=== PATIENT | female | born 1965 | race Caucasian/White ===

== ENCOUNTER 2018-06-10 16:12 | Inpatient (IN) | payer MEDICARE, OTHER ==
[~2018-06-10] VITALS: Ht 167.6 cm; Wt 59.6 kg
[~2018-06-10 16:12] MED LIST: ALBU90OI INH; AMIT50 PO; ASPI325 PO; BENZ100A PO; CITA20 PO; CLON1 PO; CRUTCH2 USE; CYCL10 PO; DIAZ5 PO; DICY20 PO; DULO30 PO; DULO60; DULO60 PO; ETOD400 PO; GABA300 PO; GUAI600ER PO; HYDACE5 PO; HYDR25SUP PR; IBUP800 PO; INDO25 PO; KETO10 PO; LEVO750 PO; LISHYD1012 PO; LORTAB 7.5-3251 EACH PO; MELO7.5 PO; NAPR500 PO; OMEP20ER PO; OTC COLD MEDS; OXYACE5T PO; OXYACE7.5T PO; OXYC15ER PO; OXYC5 PO; PANT40 PO; PROM25 PO; Percocet 10-321 EACH PO; Prilosec Otc20 MG PO; SULTRISS PO; TRAM50 PO
[2018-06-10 17:56] LABS: BASOPHILS ABSOLUTE AUTO 0.07 K/mm3 (0.00-0.23); BASOPHILS PERCENT AUTO 0 % (0-2); EOSINOPHILS ABSOLUTE AUTO 0.03 K/mm3 (0.00-0.68); EOSINOPHILS PERCENT AUTO 0 % (0-6); Hematocrit 43.1 % (33.0-51.0); Hemoglobin 14.5 g/dL (11.5-16.0); IMMATURE GRAN ABSOLUTE AUTO 0.11 K/mm3 (0.00-0.10); IMMATURE GRAN PERCENT AUTO 1 % (0-1); LYMPHOCYTES ABSOLUTE AUTO 1.84 K/mm3 (0.84-5.20); LYMPHOCYTES PERCENT AUTO 10 % (21-46); MONOCYTES ABSOLUTE AUTO 0.71 K/mm3 (0.16-1.47); MONOCYTES PERCENT AUTO 4 % (4-13); Mean Corpuscular HGB 31.5 pg (26.0-34.0); Mean Corpuscular HGB Conc 33.6 g/dL (31.5-36.5); Mean Corpuscular Volume 94 fL (80-100); Mean Platelet Volume 8.2 fL (9.1-12.4); NEUTROPHILS ABSOLUTE AUTO 15.24 K/mm3 (1.96-9.15); NEUTROPHILS PERCENT AUTO 85 % (41-73); Platelet Count 462 K/mm3 (150-400); RDW Coefficient Variation 12.2 % (11.7-14.2); RDW Standard Deviation 42.5 fL (35.1-46.3)
[2018-06-10 18:14] LABS: Alanine Aminotransfer (ALT/SGP 42 U/L (12-78); Albumin, Blood 4.1 g/dL (3.4-5.0); Alk Phos 97 U/L (50-136); Anion Gap 8 mmol/L (6-16); Aspartate Aminotrans (AST/SGOT 25 U/L (12-37); Bilirubin, Total 0.3 mg/dL (0.1-1.0); Blood Urea Nitrogen 14 mg/dL (8-24); Bun/Creatinine Ratio 25.9 (12.0-20.0); CO2, Blood 25 mmol/L (21-32); Calcium, Blood 9.1 mg/dL (8.5-10.1); Chloride, Blood 101 mmol/L (98-108); Creatinine, Blood 0.54 mg/dL (0.40-1.00); Globulin, Blood 4.3 g/dL (2.2-4.0); Glomerular Filtration Rate >60 (60-); Glucose, Blood 107 mg/dL (70-99); Potassium, Blood 3.6 mmol/L (3.5-5.5); Sodium, Blood 134 mmol/L (136-145); Total Protein, Blood 8.4 g/dL (6.4-8.2)
[2018-06-11 05:39] LABS: Hematocrit 35.9 % (33.0-51.0); Hemoglobin 11.8 g/dL (11.5-16.0); Mean Corpuscular HGB 30.8 pg (26.0-34.0); Mean Corpuscular HGB Conc 32.9 g/dL (31.5-36.5); Mean Corpuscular Volume 94 fL (80-100); Mean Platelet Volume 8.3 fL (9.1-12.4); Platelet Count 400 K/mm3 (150-400); RDW Coefficient Variation 12.4 % (11.7-14.2); RDW Standard Deviation 42.5 fL (35.1-46.3); Red Blood Cell Count 3.83 M/mm3 (3.80-5.20); White Blood Cell Count 12.03 K/mm3 (4.00-11.30)
[2018-06-11 06:18] LABS: Alanine Aminotransfer (ALT/SGP 32 U/L (12-78); Albumin/Globulin Ratio 0.9 (0.8-1.8); Alk Phos 75 U/L (50-136); Anion Gap 7 mmol/L (6-16); Aspartate Aminotrans (AST/SGOT 23 U/L (12-37); Bilirubin, Total 0.4 mg/dL (0.1-1.0); Blood Urea Nitrogen 12 mg/dL (8-24); Bun/Creatinine Ratio 23.3 (12.0-20.0); CO2, Blood 27 mmol/L (21-32); Calcium, Blood 8.3 mg/dL (8.5-10.1); Chloride, Blood 107 mmol/L (98-108); Creatinine, Blood 0.52 mg/dL (0.40-1.00); Globulin, Blood 3.3 g/dL (2.2-4.0); Glomerular Filtration Rate >60 (60-); Glucose, Blood 96 mg/dL (70-99); Potassium, Blood 3.7 mmol/L (3.5-5.5); Sodium, Blood 141 mmol/L (136-145)
[2018-06-11] MEDS ORDERED: ASPI325 PO (07:44)
[2018-06-11 07:55] LABS: Total Protein, Blood 6.3 g/dL (6.4-8.2)
--- NOTE | 2018-06-11 07:59 | NUR ---
SHIFT SUMMARY PT A&O X 4 T/O SHIFT. ADMITTED FROM ER THIS SHIFT. INDEPENDENT IN ROOM PAIN IN L SHOULDER MANAGED PER EMAR. PT DECLINED ELEVATING LUE. NAUSEA MANGED PER EMAR. PT NPO POST MIDNIGHT. IV GTT PER EMAR. DR. PATEL NOTIFIED IN PERSON THIS AM PT REPORTS ASPIRIN USE FOR PAIN MANAGEMENT FOR LAST FEW MONTHS. PT OFF UNIT TO SMOKE X1. CALL LIGHT IN REACH; PT DEMONSTRATES USE. REPORT GIVEN TO DAY SHIFT RN.
[2018-06-11 08:13] LABS: BASOPHILS ABSOLUTE AUTO 0.07 K/mm3 (0.00-0.23); BASOPHILS PERCENT AUTO 1 % (0-2); EOSINOPHILS ABSOLUTE AUTO 0.18 K/mm3 (0.00-0.68); EOSINOPHILS PERCENT AUTO 2 % (0-6); IMMATURE GRAN ABSOLUTE AUTO 0.04 K/mm3 (0.00-0.10); IMMATURE GRAN PERCENT AUTO 0 % (0-1); LYMPHOCYTES ABSOLUTE AUTO 3.51 K/mm3 (0.84-5.20); LYMPHOCYTES PERCENT AUTO 29 % (21-46); MONOCYTES ABSOLUTE AUTO 0.86 K/mm3 (0.16-1.47); MONOCYTES PERCENT AUTO 7 % (4-13); NEUTROPHILS ABSOLUTE AUTO 7.33 K/mm3 (1.96-9.15); NEUTROPHILS PERCENT AUTO 61 % (41-73)
[2018-06-11 12:37] LABS: Automated BF RBC Count 2.703 M/mm3 (0-0); Automated BF WBC Count 4.219 K/mm3 (0-999); Body Fluid WBC Count 4219 /mm3 (0-999); RBC Count, Body Fluid 2703000 /mm3 (0-0)
[2018-06-11 12:42] LABS: Body Fluid Crystals NEG (NEGATIVE)
[2018-06-11 12:43] LABS: Appearance, Body Fluid Bloody (Clear); Color, Body Fluid Red (None-Yellow)
[2018-06-11 13:22] LABS: Total Cell Count, Body Fluid 20
--- NOTE | 2018-06-11 18:50 | NUR ---
SHIFT SUMMARY PT AXO, PLEASANT AND COOPERATIVE WITH CARE. AMBULATES WITH STEADY GAIT OUTSIDE TO SMOKE DEPSITE EDUCATION. MRI COMPLETED AND RADIOLOGY GUIDED ASPIRATION OF L SHOULDER JOINT COMPLETED. SEE LABS ASSOCIATED. NURSE CALLED LAB TO VERIFY THAT CULTURE HAD BEEN COMPLETE. DR PATEL VERIFIED OKAY TO START ANTIBIOTICS PER DR RUIZ. IV PATENT INFUSING AT THIS TIME. PT MEDICATED FOR PAIN AND NAUSEA PER EMAR. BED IN LOW POSITION, CALL LIGHT WITHIN REACH
[2018-06-12 05:35] LABS: BASOPHILS ABSOLUTE AUTO 0.06 K/mm3 (0.00-0.23); BASOPHILS PERCENT AUTO 1 % (0-2); EOSINOPHILS ABSOLUTE AUTO 0.31 K/mm3 (0.00-0.68); EOSINOPHILS PERCENT AUTO 3 % (0-6); Hematocrit 36.6 % (33.0-51.0); IMMATURE GRAN ABSOLUTE AUTO 0.03 K/mm3 (0.00-0.10); IMMATURE GRAN PERCENT AUTO 0 % (0-1); LYMPHOCYTES ABSOLUTE AUTO 1.97 K/mm3 (0.84-5.20); LYMPHOCYTES PERCENT AUTO 20 % (21-46); MONOCYTES ABSOLUTE AUTO 0.79 K/mm3 (0.16-1.47); MONOCYTES PERCENT AUTO 8 % (4-13); Mean Corpuscular HGB 30.8 pg (26.0-34.0); Mean Corpuscular HGB Conc 32.8 g/dL (31.5-36.5); Mean Corpuscular Volume 94 fL (80-100); Mean Platelet Volume 8.3 fL (9.1-12.4); NEUTROPHILS ABSOLUTE AUTO 6.88 K/mm3 (1.96-9.15); NEUTROPHILS PERCENT AUTO 69 % (41-73); Platelet Count 377 K/mm3 (150-400); RDW Coefficient Variation 12.3 % (11.7-14.2); RDW Standard Deviation 42.6 fL (35.1-46.3); Red Blood Cell Count 3.89 M/mm3 (3.80-5.20); White Blood Cell Count 10.04 K/mm3 (4.00-11.30)
[2018-06-12 05:59] LABS: Anion Gap 8 mmol/L (6-16); Blood Urea Nitrogen 15 mg/dL (8-24); Bun/Creatinine Ratio 26.7 (12.0-20.0); CO2, Blood 25 mmol/L (21-32); Calcium, Blood 8.6 mg/dL (8.5-10.1); Chloride, Blood 108 mmol/L (98-108); Creatinine, Blood 0.56 mg/dL (0.40-1.00); Glomerular Filtration Rate >60 (60-); Glucose, Blood 100 mg/dL (70-99); Potassium, Blood 3.5 mmol/L (3.5-5.5); Sodium, Blood 141 mmol/L (136-145)
--- NOTE | 2018-06-12 06:32 | NUR ---
SUMMARY: NO ACUTE CHANGE THIS SHIFT. PT A/O INDEPEDENT. VSS. NPO AT 0000. SPOKE THIS TANIA FROM PHARMACY AND HE RECOMMENDED 0000 DOSE OF ANTIBIOTIC GIVEN AT 0600 TO RETIME DUE TO 1400 DOSE NOT GIVEN UNTIL 2129, SEE EMAR. PT MEDICATED FOR PAIN PRN, 50MCG FENTANYAL AND TORADOL. NO ACUTE SAFETY CONCERNS. 18G IV STARTED. PLAN IS FOR I&D TODAY.
[2018-06-12] MEDS ORDERED: HYDR1TAB94 PO (14:31)
[2018-06-12] MEDS ORDERED: KETO10 PO (14:31)
--- NOTE | 2018-06-12 14:51 | NUR ---
DISCHARGE PT DISCHARGED HOME FROM UNIT AT APROX 1450. PT GIVEN WRITTEN AND VERBAL DISCHARGE INSTRUCTIONS AND VERBALIZED UNDERSTANDING OF THESE INSTRUCTIONS. IV'S REMOVED-PT TOLERATED WELL. REFUSED WHEELCHAIR TO CAR-INDEPENDENT IN AMBULATION
== END 2018-06-12 14:54 | disposition home or self-care (01) | DRG 565 ==
LOC: ER 16:12 → SURS 20:20
PROVIDERS: Internal Medicine; Orthopaedic Surgery; Physician Assistant; ADMIT Internal Medicine
PROC: 0R9K3ZX Drainage of Left Shoulder Joint, Percutaneous Approach, Diagnostic (ICD-10-PCS; principal; 2018-06-11)
DX: M89.512 Osteolysis, left shoulder (principal); M87.812 Other osteonecrosis, left shoulder; M25.412 Effusion, left shoulder; F17.210 Nicotine dependence, cigarettes, uncomplicated; Z86.19 Personal history of other infectious and parasitic diseases; Z88.5 Allergy status to narcotic agent; Z28.20 Immunization not carried out because of patient decision for unspecified reason
CPT/HCPCS: 20610; 36415; 73030; 73221; 77002; 80048; 80053; 85025; 85651; 86140; 87070; 87075; 87205; 89051; 89060; 96372; 96374; 96376; 99285-25; J1170; J1650; J1885; J2405; J2543; J3010; J3370; J7030

== ENCOUNTER 2019-04-26 01:50 | Observation (INO) | payer MEDICARE, OTHER ==
[~2019-04-26] VITALS: Ht 167.6 cm; Wt 61.8 kg
[~2019-04-26 01:50] MED LIST changes: +CHLO25 PO; +HYDR1TAB94 PO
[2019-04-26 02:13] LABS: BASOPHILS ABSOLUTE AUTO 0.09 K/mm3 (0.00-0.23); BASOPHILS PERCENT AUTO 1 % (0-2); EOSINOPHILS PERCENT AUTO 3 % (0-6); Hematocrit 39.1 % (33.0-51.0); Hemoglobin 12.7 g/dL (11.5-16.0); IMMATURE GRAN ABSOLUTE AUTO 0.03 K/mm3 (0.00-0.10); IMMATURE GRAN PERCENT AUTO 0 % (0-1); LYMPHOCYTES ABSOLUTE AUTO 3.15 K/mm3 (0.84-5.20); LYMPHOCYTES PERCENT AUTO 29 % (21-46); MONOCYTES ABSOLUTE AUTO 0.65 K/mm3 (0.16-1.47); MONOCYTES PERCENT AUTO 6 % (4-13); Mean Corpuscular HGB 32.2 pg (26.0-34.0); Mean Corpuscular HGB Conc 32.5 g/dL (31.5-36.5); Mean Corpuscular Volume 99 fL (80-100); Mean Platelet Volume 8.1 fL (9.1-12.4); NEUTROPHILS ABSOLUTE AUTO 6.49 K/mm3 (1.96-9.15); NEUTROPHILS PERCENT AUTO 61 % (41-73); Platelet Count 385 K/mm3 (150-400); RDW Coefficient Variation 12.3 % (11.7-14.2); RDW Standard Deviation 45.4 fL (35.1-46.3); Red Blood Cell Count 3.94 M/mm3 (3.80-5.20); White Blood Cell Count 10.71 K/mm3 (4.00-11.30)
[2019-04-26 02:30] LABS: Acetaminophen, Random <2.0 ug/mL (10.0-30.0); Alanine Aminotransfer (ALT/SGP 40 U/L (12-78); Albumin, Blood 3.4 g/dL (3.4-5.0); Albumin/Globulin Ratio 1.1 (0.8-1.8); Alk Phos 75 U/L (50-136); Anion Gap 5 mmol/L (6-16); Aspartate Aminotrans (AST/SGOT 20 U/L (12-37); Bilirubin, Total 0.2 mg/dL (0.1-1.0); Blood Urea Nitrogen 11 mg/dL (8-24); Bun/Creatinine Ratio 16.3 (12.0-20.0); CO2, Blood 27 mmol/L (21-32); Calcium, Blood 8.1 mg/dL (8.5-10.1); Chloride, Blood 111 mmol/L (98-108); Creatinine, Blood 0.68 mg/dL (0.40-1.00); Ethanol (Alcohol), Blood, Med <3 mg/dL; Globulin, Blood 3.1 g/dL (2.2-4.0); Glomerular Filtration Rate >60 (60-); Glucose, Blood 103 mg/dL (70-99); Potassium, Blood 3.9 mmol/L (3.5-5.5); Salicylate 4.6 mg/dL (2.8-20.0); Sodium, Blood 143 mmol/L (136-145); Total Protein, Blood 6.5 g/dL (6.4-8.2)
[2019-04-26] MEDS ORDERED: HYDRA25 PO (02:56)
[2019-04-26] MEDS ORDERED: PENVK500 PO (02:56)
[2019-04-26] MEDS ORDERED: CITA20 PO (02:56)
--- NOTE | 2019-04-26 04:40 | NUR ---
PATIENT ARRIVED TO THE FLOOR VIA GURNEY SNORING. SHE WAS GIVEN ATIVAN 2MG IN THE ER. SHE AWAKENED FOR A SHORT BIT FOR HER TO TRANSFER TO THE BED. THEN SHE FELL BACK TO SLEEP ONCE SHE GOT ON THE BED. ASSESSMENT COMPLETED AND HISTORY WAS MOSTLY OBTAINED THROUGH MEDICAL RECORDS. LAB EVEN CAME IN TO TAKE BLOOD AND SHE WOKE FOR A MINUTE RESPONDING TO HER NAME AND WHAT WE ARE TELLING HER BUT CONTINUES TO PASS OUT. CALL LIGHT WAS GIVEN. WILL CONTINUE TO MONITOR HER.
[2019-04-26 04:53] LABS: Anion Gap 4 mmol/L (6-16); Blood Urea Nitrogen 10 mg/dL (8-24); Bun/Creatinine Ratio 15.5 (12.0-20.0); CO2, Blood 25 mmol/L (21-32); Calcium, Blood 7.9 mg/dL (8.5-10.1); Chloride, Blood 113 mmol/L (98-108); Creatinine, Blood 0.65 mg/dL (0.40-1.00); Glomerular Filtration Rate >60 (60-); Glucose, Blood 100 mg/dL (70-99); Magnesium, Blood 1.8 mg/dL (1.6-2.4); Potassium, Blood 4.3 mmol/L (3.5-5.5); Sodium, Blood 142 mmol/L (136-145)
--- NOTE | 2019-04-26 05:19 | NUR ---
SHIFT SUMMARY: PATIENT ONLY GOT TO THE FLOOR ABOUT AN HOUR AGO. SHE HAS BEEN SLEEPING SINCE ARRIVAL. REFUSED TO HAVE LOVENOX AND FLU SHOT AT THIS TIME. WAS ABLE TO GET ASSESSMENT AND ADMISSION COMPLETED IN BETWEEN HER FALLING ASLEEP. CIWA WAS ONLY 1 ER GAVE ATIVAN BEFORE SENDING TO THE FLOOR. TELE WAS PLACED. SHE WAS SETTLED INTO THE ROOM. CALL LIGHT IN REACH AND BED ALARM WAS PLACED ON. WILL REPORT TO DAY SHIFT RN.
[2019-04-26 08:34] LABS: Source, Urine Clean Catch
[2019-04-26 09:21] LABS: Appearance, Urine Clear (Clear); Bilirubin, Urine Neg (Neg); Blood, Urine Neg (Neg); Color, Urine Yellow (P-Yellow); Glucose Qualitative, Urine Neg (Neg); Ketones, Urine Neg (Neg); Leukocyte Esterase, Urine Neg (Neg); Nitrite, Urine Neg (Neg); Protein, Urine Neg (Neg); Urobilinogen, Urine NORM (Normal)
[2019-04-26 09:32] LABS: U Amphetamine Screen Not Detected; U Barbituate Screen Not Detected; U Benzodiazapine Screen DETECTED; U Buprenorphine Screen Not Detected; U Cannabinoids Screen DETECTED; U Cocaine Screen Not Detected; U Methadone Screen Not Detected; U Methamphetamine Screen Not Detected; U Opiates Screen Not Detected; U Oxycodone Screen Not Detected; U Phencyclidine Screen Not Detected; U Propoxyphene Screen Not Detected
[2019-04-26] MEDS ORDERED: THERA1 EACH PO (12:32)
[2019-04-26] MEDS ORDERED: CHLO10 PO (12:33)
--- NOTE | 2019-04-26 14:04 | NUR ---
DISCHARGE SUMMARY: LATE ENTRY PATIENT REPORTED HIGH ANXIETY THIS MORNING. ALSO EXPERIENCING A HEADACHE AND MILD STOMACH UPSET. CIWA OF 11. MEDICATED PER PRNS WITH LIBRIUM. PATIENT TOLERATED WELL AND REPORTED THAT IT WAS SUCCESSFUL AT TREATING HER ANXIETY AND OTHER WITHDRAWL SYMPTOMS. LATE THIS MORNING, PATIENT REPORTED THAT SHE IS READY FOR DISCHARGE. DISCHARGE MEDICATIONS FAXED TO [facility] IN [place] PER REQUEST. SCRIPT FOR LIBRIUM PROVIDED TO THE PATIENT. DISCHARGE APPOINTMENT TO PCP SET. DISCHARGE EDUCATION AND INSTRUCTIONS PROVIDED TO THE PATIENT. ALL QUESTIONS AND CONCERNS ADDRESSED. PATIENT REFUSED WHEELCHAIR. PATIENT STEADY ON FEET AND DENIES DIZZINESS OR DIFFICULTY WALKING. PATIENT STABLE AT TIME OF DISCHARGE.
== END 2019-04-26 13:29 | disposition home or self-care (01) ==
LOC: ER 01:50 → MEDS 01:51 → ENPENDDIS 11:10 → MEDS 13:29
PROVIDERS: Emergency Medicine; ADMIT Hospitalist
DX: F10.239 Alcohol dependence with withdrawal, unspecified (principal); F15.10 Other stimulant abuse, uncomplicated; F32.9 Major depressive disorder, single episode, unspecified; F41.9 Anxiety disorder, unspecified; F17.210 Nicotine dependence, cigarettes, uncomplicated; M19.012 Primary osteoarthritis, left shoulder; I10 Essential (primary) hypertension; Z88.5 Allergy status to narcotic agent; Z79.82 Long term (current) use of aspirin; Z79.899 Other long term (current) drug therapy; Y90.0 Blood alcohol level of less than 20 mg/100 ml
CPT/HCPCS: 36415; 80048; 80053; 81003; 81025; 83735; 85025; 96361; 96372; 96374; 99285-25; G0378; G0480; J1650; J1885; J7030

== ENCOUNTER 2019-05-06 09:58 | Inpatient (IN) | payer MEDICARE, OTHER ==
[~2019-05-06] VITALS: Ht 167.6 cm; Wt 54.0 kg
[~2019-05-06 09:58] MED LIST changes: +CHLO10 PO; +HYDRA25 PO; +PENVK500 PO; +THERA1 EACH PO
[2019-05-06 10:20] LABS: BASOPHILS ABSOLUTE AUTO 0.05 K/mm3 (0.00-0.23); BASOPHILS PERCENT AUTO 1 % (0-2); EOSINOPHILS ABSOLUTE AUTO 0.09 K/mm3 (0.00-0.68); EOSINOPHILS PERCENT AUTO 1 % (0-6); Hematocrit 42.7 % (33.0-51.0); Hemoglobin 14.3 g/dL (11.5-16.0); IMMATURE GRAN ABSOLUTE AUTO 0.02 K/mm3 (0.00-0.10); IMMATURE GRAN PERCENT AUTO 0 % (0-1); LYMPHOCYTES ABSOLUTE AUTO 2.07 K/mm3 (0.84-5.20); LYMPHOCYTES PERCENT AUTO 22 % (21-46); MONOCYTES ABSOLUTE AUTO 0.43 K/mm3 (0.16-1.47); MONOCYTES PERCENT AUTO 5 % (4-13); Mean Corpuscular HGB 32.1 pg (26.0-34.0); Mean Corpuscular HGB Conc 33.5 g/dL (31.5-36.5); Mean Platelet Volume 8.1 fL (9.1-12.4); NEUTROPHILS ABSOLUTE AUTO 6.73 K/mm3 (1.96-9.15); NEUTROPHILS PERCENT AUTO 72 % (41-73); Platelet Count 444 K/mm3 (150-400); RDW Standard Deviation 42.7 fL (35.1-46.3); Red Blood Cell Count 4.46 M/mm3 (3.80-5.20); White Blood Cell Count 9.39 K/mm3 (4.00-11.30)
[2019-05-06 10:22] LABS: Mean Corpuscular Volume 96 fL (80-100)
[2019-05-06 10:44] LABS: Alanine Aminotransfer (ALT/SGP 52 U/L (12-78); Albumin, Blood 3.9 g/dL (3.4-5.0); Albumin/Globulin Ratio 1.1 (0.8-1.8); Alk Phos 70 U/L (50-136); Anion Gap 7 mmol/L (6-16); Aspartate Aminotrans (AST/SGOT 34 U/L (12-37); Bilirubin, Total 0.4 mg/dL (0.1-1.0); Blood Urea Nitrogen 12 mg/dL (8-24); Bun/Creatinine Ratio 21.7 (12.0-20.0); CO2, Blood 25 mmol/L (21-32); Calcium, Blood 8.9 mg/dL (8.5-10.1); Chloride, Blood 107 mmol/L (98-108); Creatinine, Blood 0.55 mg/dL (0.40-1.00); Ethanol (Alcohol), Blood, Med <3 mg/dL; Globulin, Blood 3.6 g/dL (2.2-4.0); Glomerular Filtration Rate >60 (60-); Glucose, Blood 124 mg/dL (70-99); Potassium, Blood 3.4 mmol/L (3.5-5.5); Salicylate 10.1 mg/dL (2.8-20.0); Sodium, Blood 139 mmol/L (136-145); Thyroxine (T4) 10.5 ug/dL (4.8-13.9); Total Protein, Blood 7.5 g/dL (6.4-8.2)
[2019-05-06 10:48] LABS: Source, Urine Clean Catch
[2019-05-06 10:56] LABS: Bilirubin, Urine Neg (Neg); Blood, Urine Neg (Neg); Glucose Qualitative, Urine Neg (Neg); Ketones, Urine Neg (Neg); Leukocyte Esterase, Urine Neg (Neg); Nitrite, Urine Neg (Neg); Protein, Urine Neg (Neg); Specific Gravity, Urine 1.005 (1.003-1.022); Urobilinogen, Urine NORM (Normal); pH, Urine 6.5 (5.0-8.0)
[2019-05-06 11:10] LABS: Appearance, Urine Clear (Clear); Color, Urine Yellow (P-Yellow)
[2019-05-06 11:18] LABS: U Amphetamine Screen Not Detected; U Barbituate Screen Not Detected; U Benzodiazapine Screen DETECTED; U Buprenorphine Screen Not Detected; U Cannabinoids Screen Not Detected; U Cocaine Screen Not Detected; U Methadone Screen Not Detected; U Methamphetamine Screen Not Detected; U Opiates Screen Not Detected; U Oxycodone Screen Not Detected; U Phencyclidine Screen Not Detected; U Propoxyphene Screen Not Detected
--- NOTE | 2019-05-06 14:30 | NUR ---
Patient arrived via gurney in [facility] from ER post report from Jossy BOYCE. She had restraints removed by ER Nurse and she was able to transfer self to bed via sliding herself. She has Banana Bag infusing at 200ml/hr. Assessment done . Patient states depressed but not currently suicidal. Sitter at door way. VSS. She is on RA and sats 98%. She has 18ga RFA, dressing intact and site WNL's. We have discussed that if she does not pull at lines and tubes she will remain out of restraints. Flu shot and lovenox given. Called Dr Escobar for 21mg Nicotine patch and applied.
--- NOTE | 2019-05-06 16:31 | NUR ---
Jorge called and went into room right away and patient was using pulse ox sensor and using it to cut her skin on LAC. Pictures taken and placed in charge. She rolled to left and used connector in sawing motion and broke skin and started to bleed. Cleaned site and place gauze over with coban. Talked with patient and very suicidal, states"does not want to be on earth". She wanted me to call her to come in and see her. She is being cooperative and less combative currently.
--- NOTE | 2019-05-06 17:24 | NUR ---
CALLED PATIENTS TO COME SEE PATIENT AND REALLY CHANGED HER MOOD. SHE AGREES THAT SHE CAN SWITCH VERY EASILY AND DOES STILL FEEL DEPRESSED AND SUICIDAL. VSS. SHE REMAINS IN TAT UPPER EXTREMITIES. SITTER AT DOOR FOR 1:1. SHE IS ASKING FOR DIET. WILL TALK WITH DR WRAY.
[2019-05-06 18:25] LABS: Alanine Aminotransfer (ALT/SGP 47 U/L (12-78); Albumin, Blood 3.2 g/dL (3.4-5.0); Alk Phos 58 U/L (50-136); Anion Gap 9 mmol/L (6-16); Aspartate Aminotrans (AST/SGOT 24 U/L (12-37); Bilirubin, Total 0.4 mg/dL (0.1-1.0); Blood Urea Nitrogen 8 mg/dL (8-24); Bun/Creatinine Ratio 14.8 (12.0-20.0); CO2, Blood 21 mmol/L (21-32); Calcium, Blood 8.2 mg/dL (8.5-10.1); Chloride, Blood 111 mmol/L (98-108); Creatinine, Blood 0.54 mg/dL (0.40-1.00); Globulin, Blood 3.2 g/dL (2.2-4.0); Glomerular Filtration Rate >60 (60-); Glucose, Blood 119 mg/dL (70-99); Magnesium, Blood 2.3 mg/dL (1.6-2.4); Potassium, Blood 3.7 mmol/L (3.5-5.5); Salicylate 5.9 mg/dL (2.8-20.0); Sodium, Blood 141 mmol/L (136-145); Total Protein, Blood 6.4 g/dL (6.4-8.2)
[2019-05-06 20:52] LABS: Acetaminophen, Random <2.0 ug/mL (10.0-30.0); Alanine Aminotransfer (ALT/SGP 47 U/L (12-78); Albumin, Blood 3.4 g/dL (3.4-5.0); Albumin/Globulin Ratio 1.1 (0.8-1.8); Alk Phos 62 U/L (50-136); Aspartate Aminotrans (AST/SGOT 25 U/L (12-37); Bilirubin, Direct 0.1 mg/dL (0.0-0.3); Bilirubin, Indirect 0.3 mg/dL (0.1-0.7); Bilirubin, Total 0.4 mg/dL (0.1-1.0); Total Protein, Blood 6.4 g/dL (6.4-8.2)
[2019-05-07 03:49] LABS: BASOPHILS ABSOLUTE AUTO 0.08 K/mm3 (0.00-0.23); BASOPHILS PERCENT AUTO 1 % (0-2); EOSINOPHILS ABSOLUTE AUTO 0.27 K/mm3 (0.00-0.68); EOSINOPHILS PERCENT AUTO 2 % (0-6); Hematocrit 40.4 % (33.0-51.0); Hemoglobin 13.5 g/dL (11.5-16.0); IMMATURE GRAN ABSOLUTE AUTO 0.06 K/mm3 (0.00-0.10); IMMATURE GRAN PERCENT AUTO 0 % (0-1); LYMPHOCYTES ABSOLUTE AUTO 1.44 K/mm3 (0.84-5.20); LYMPHOCYTES PERCENT AUTO 9 % (21-46); MONOCYTES ABSOLUTE AUTO 0.66 K/mm3 (0.16-1.47); MONOCYTES PERCENT AUTO 4 % (4-13); Mean Corpuscular HGB 32.1 pg (26.0-34.0); Mean Corpuscular HGB Conc 33.4 g/dL (31.5-36.5); Mean Corpuscular Volume 96 fL (80-100); Mean Platelet Volume 8.1 fL (9.1-12.4); NEUTROPHILS ABSOLUTE AUTO 13.16 K/mm3 (1.96-9.15); NEUTROPHILS PERCENT AUTO 84 % (41-73); Platelet Count 397 K/mm3 (150-400); RDW Coefficient Variation 12.2 % (11.7-14.2); RDW Standard Deviation 42.9 fL (35.1-46.3); White Blood Cell Count 15.67 K/mm3 (4.00-11.30)
[2019-05-07 04:09] LABS: Alanine Aminotransfer (ALT/SGP 46 U/L (12-78); Albumin, Blood 3.3 g/dL (3.4-5.0); Albumin/Globulin Ratio 1.1 (0.8-1.8); Alk Phos 59 U/L (50-136); Anion Gap 4 mmol/L (6-16); Aspartate Aminotrans (AST/SGOT 23 U/L (12-37); Bilirubin, Total 0.5 mg/dL (0.1-1.0); Blood Urea Nitrogen 12 mg/dL (8-24); Bun/Creatinine Ratio 20.7 (12.0-20.0); CO2, Blood 26 mmol/L (21-32); Calcium, Blood 8.4 mg/dL (8.5-10.1); Chloride, Blood 112 mmol/L (98-108); Creatinine, Blood 0.58 mg/dL (0.40-1.00); Glomerular Filtration Rate >60 (60-); Glucose, Blood 110 mg/dL (70-99); Potassium, Blood 3.8 mmol/L (3.5-5.5); Sodium, Blood 142 mmol/L (136-145); Total Protein, Blood 6.3 g/dL (6.4-8.2)
--- NOTE | 2019-05-07 07:22 | NUR ---
Receieved report from Zafar BOYCE. Patient awake in bed with HOB at 30 degrees. She is alert and oriented and able to communicate her needs. She still states plan and that if she had the chance would kill her self. When asked why she is in restraints she knows it is for her safety. She is in bilateral TAT upper extremities as she pulls out of soft restraints. She is on RA and sats upper 90%'s. She has 18ga IV in LFA dressing intact and site WNL's and is flushed and SL. She has sitter at bedside. VSS and WNL's.
--- NOTE | 2019-05-07 08:31 | NUR ---
Patient still withdrawn. Released restraints fo rbreakfast and she was constantin shoving stuff around as is she did not want it and then ate about 90% and 360ml of fluids. Placed back in restraints as she was escalating in agitation. She does asnwers lowly but appropriately questions. She took meds without difficulty. She continues to state plan and suicidal idealations, VSS Banana Bag started at 200ml/hr. Patient stated her shoulder is bothering her and would like xray.
--- NOTE | 2019-05-07 10:05 | NUR ---
Set up telepsych appt at 1245. Dr Licona by at 0911 and taklked with patient. VSS. She has been resting in bed and withdrawn when communicating. She still requesting Dr Licona to evaluate left shoulder. Still has suicidal ideal ations and states if released she would harm herself.
--- NOTE | 2019-05-07 12:00 | NUR ---
Patient has been [facility] and is stable with ambulation and just needs assist with line and tubes. VSS. She still looks around room like she is planning something. Everytime in room she reasks about left shoulder xray, stating " I better get it before I leav. She is asking for second patch of Nicotine or permission to go out side which I stated is not going to happen. Sitter at bedside helping patient with lunch. Tele-psych is done and awaiting report.
--- NOTE | 2019-05-07 12:40 | NUR ---
Patient arrived via gurney intubated and on sedation. He was 4 person transfer. He arrived wpyj 8.0 tube and 26cm at lips, vent settings AC 16, TV450 FiO2 30% with sats 100%.1240 Dr Rose changed to spon. mode PS ) Fio2 30% and PEEP 5.0 and sats remain upper 90%'s. Placed OG to LIS and temp 16Fr Benson with clear lighrt yellow urine and sent sample to lab. He was starting to become Hypotensive systolic 80 and MAP >60 with Propofol 50mcg, Versed 3mg and started Ajith-synepherine at 40mcg/min and systolic 90's. RT giving updrafts q2.
--- NOTE | 2019-05-07 15:00 | NUR ---
Titrating Propofol and Ajith for systolic greater than 90, with little success and not want to increase Ajith very high until CL placed. Called Dr Milton martinezved lg for PICC and he wants 2GM mag and continue updrats q2.
--- NOTE | 2019-05-07 15:20 | NUR ---
PT ARRIVED TO ROOM 352 FROM ICU 15 VIA W/C. PT IS AMBULATORY AND INDEPENDENT IN ROOM. PT IS HIGH SI RISK AND HAS A 1/1 SITTER. ORIENTED TO ROOM. WILL CONTINUE TO MONITOR.
--- NOTE | 2019-05-07 15:26 | NUR ---
Gave report to zhou BOYCE. Medicated patient prior to transfer. She was transfered in wheelchair with two RN's and a sitter. Her meds and any belonging went with patient. There were no personal belongings with patient when she arrived to ICU.
[2019-05-07 16:38] LABS: Source, Urine Clean Catch
[2019-05-07 16:41] LABS: Bilirubin, Urine Neg (Neg); Blood, Urine Neg (Neg); Glucose Qualitative, Urine Neg (Neg); Ketones, Urine Neg (Neg); Leukocyte Esterase, Urine 1+ (Neg); Nitrite, Urine Neg (Neg); Protein, Urine Neg (Neg); Specific Gravity, Urine 1.005 (1.003-1.022); Urobilinogen, Urine NORM (Normal); pH, Urine 6.5 (5.0-8.0)
[2019-05-07 16:43] LABS: Appearance, Urine Clear (Clear); Color, Urine Yellow (P-Yellow)
[2019-05-07 16:48] LABS: Bacteria Rare /hpf; Red Blood Cells, Urine Not Seen /hpf (0-2); Squamous Epithelial Cells Rare /hpf (Few); White Blood Cells, Urine 0-2 /hpf (0-5)
--- NOTE | 2019-05-07 18:41 | NUR ---
PT HAS BEEN CALM, FLAT AFFECT, AND COOPERATIVE SINCE ARRIVAL TO FLOOR. B/L WRIST RESTRAINTS DISCONTINUED. NO ACUTE CHANGES, WILL CONTINUE TO MONITOR AND REPORT TO ONCOMING RN
--- NOTE | 2019-05-07 22:47 | NUR ---
05/07/19 2240 PT SLEEPING WITHOUT DISTRESS. 1:1 SITTER AT BEDSIDE. VIDEO MONITORING IN EFFECT WELL.
[2019-05-08 04:52] LABS: BASOPHILS ABSOLUTE AUTO 0.04 K/mm3 (0.00-0.23); BASOPHILS PERCENT AUTO 1 % (0-2); EOSINOPHILS ABSOLUTE AUTO 0.23 K/mm3 (0.00-0.68); EOSINOPHILS PERCENT AUTO 3 % (0-6); Hematocrit 39.1 % (33.0-51.0); Hemoglobin 12.7 g/dL (11.5-16.0); IMMATURE GRAN ABSOLUTE AUTO 0.02 K/mm3 (0.00-0.10); IMMATURE GRAN PERCENT AUTO 0 % (0-1); LYMPHOCYTES ABSOLUTE AUTO 1.69 K/mm3 (0.84-5.20); LYMPHOCYTES PERCENT AUTO 23 % (21-46); MONOCYTES ABSOLUTE AUTO 0.48 K/mm3 (0.16-1.47); MONOCYTES PERCENT AUTO 7 % (4-13); Mean Corpuscular HGB 31.7 pg (26.0-34.0); Mean Corpuscular HGB Conc 32.5 g/dL (31.5-36.5); Mean Corpuscular Volume 98 fL (80-100); Mean Platelet Volume 8.4 fL (9.1-12.4); NEUTROPHILS PERCENT AUTO 67 % (41-73); Platelet Count 380 K/mm3 (150-400); RDW Standard Deviation 43.3 fL (35.1-46.3); Red Blood Cell Count 4.01 M/mm3 (3.80-5.20); White Blood Cell Count 7.36 K/mm3 (4.00-11.30)
--- NOTE | 2019-05-08 05:24 | NUR ---
05/08/19 0520 PT SNORING NOW. SHE HAS SLEPT MOST OF NIGHT WITH OCC. TRIPS TO BATHROOM FOR VOIDINGS. VITALS STABLE AND HAS A 1:1 SITTER AT BEDSIDE. VIDEO MONITORING IN EFFECT WELL. SUICIDAL PRECAUTIONS IN EFFECT. NO VERBALIZATION OF SELF HARM THIS SHIFT.
--- NOTE | 2019-05-08 07:26 | NUR ---
05/08/19 0616 SIGNIFICANT OTHER, SOLOMON, HERE AND WONDERING WHEN PT WOULD BE TRANSFERRED. SPOKE WITH PT AND OKAY'D TALKING WITH HIM. INFORMED PT AND SOLOMON THAT THERE ARE NO ORDERS FOR TRANSFER YET AND TO CALL BACK LATER THIS AM. HE AGREED. PT REQUEST SEDATIVE AND WAS GIVEN PER AUG.
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
--- NOTE | 2019-05-08 19:21 | NUR ---
SHIFT SUMMARY PT AXO X4, CRYING THROUGHOUT THE DAY. VSS. PT MEDICATED FOR PAIN AND ANXIETY AND WD PER EMAR. NURSE ASSESSED PT AND ASKED WITHDRAWL QUESTIONS, FRANCIS WAS A 15. DR LUJAN NOTIFED. THE MENTAL HEALTH AUTOMOBILE MECHANIC MOTOR THAT SAW THIS PATIENT STATES THAT SHE DOES NOT THINK THIS PT IS WITHDRAWLING AND THAT THOSE SYMPTOMS WERE R/T ANXIETY. SITTER PRESENT THROUGHOUT THE SHIFT ALSO WITH VIDEO MONITORING. PT STATES THAT SHE STILL WISHES TO HARM HERSELF. REPORT GIVEN TO [facility] [place] TO [facility] AT 1508 WHEN SHE CALLED FOR REPORT. [facility] TRANSFER AWAITING SECURE TRANSPORT IN AM. BED IN LOW POSITION, CALL LIGHT WITHIN REACH.
--- NOTE | 2019-05-09 04:36 | NUR ---
05/09/19 0435 RN SPOKE WITH NEVAEH VALENTIN, X RAY SERVICE TECHNICIAN AT [facility]. UPDATE GIVEN ON PATIENT. PT REMAINS ON HIGH RISK SUICIDAL PRECAUTIONS. 1:1 SITTER IN ROOM AND VIDEO MONITORING IN EFFECT. PT HAS BEEN WITHDRAWN/SLEEPING. SHE DOES GET UP WITH SUPERVISION TO BATHROOM FOR VOIDING AND REQUESTS MEDS PRN. SEE MAR.
--- NOTE | 2019-05-09 08:18 | NUR ---
PATIENT DISCHARGED VIA SECURE TRANSPORT TO [facility] IN [place].
== END 2019-05-09 08:16 | disposition short-term general hospital (02) | DRG 918 ==
LOC: ER 09:58 → MEDS 12:15 → ICUW 12:15 → MEDS 05-07 15:20
PROVIDERS: Emergency Medicine; Family Medicine; ADMIT Internal Medicine
DX: T43.222A Poisoning by selective serotonin reuptake inhibitors, intentional self-harm, initial encounter (principal); F33.9 Major depressive disorder, recurrent, unspecified; M00.9 Pyogenic arthritis, unspecified; T43.592A Poisoning by other antipsychotics and neuroleptics, intentional self-harm, initial encounter; Y92.9 Unspecified place or not applicable; I10 Essential (primary) hypertension; Z23 Encounter for immunization; F17.210 Nicotine dependence, cigarettes, uncomplicated; M13.0 Polyarthritis, unspecified; Z90.49 Acquired absence of other specified parts of digestive tract; F15.10 Other stimulant abuse, uncomplicated; B18.2 Chronic viral hepatitis C; M25.519 Pain in unspecified shoulder; D72.829 Elevated white blood cell count, unspecified; Z78.1 Physical restraint status
CPT/HCPCS: 36415; 71045; 73030; 80053; 80076; 81001; 81003; 81025; 83735; 84436; 84443; 85025; 87086; 90686; 93005; 93010; 96361; 96374; 99285-25; C9113; G0008; G0480; J1650; J2060; J3010; J3411; J3475; J7030; J7042

== ENCOUNTER 2019-05-14 18:22 | Emergency (ER) | payer MEDICARE, OTHER ==
[~2019-05-14] VITALS: Ht 167.6 cm; Wt 56.7 kg
[2019-05-14] MEDS ORDERED: MIRT15 PO (18:35)
[2019-05-14] MEDS ORDERED: Cymbalta60 MG PO (18:35)
[2019-05-14] MEDS ORDERED: PANT20 PO (18:35)
[2019-05-14] MEDS ORDERED: GABA300 PO (18:35)
== END 2019-05-14 19:07 | disposition home or self-care (01) ==
LOC: ER 18:22
DX: R00.0 Tachycardia, unspecified (principal); F15.10 Other stimulant abuse, uncomplicated; F32.9 Major depressive disorder, single episode, unspecified; F41.9 Anxiety disorder, unspecified; F17.210 Nicotine dependence, cigarettes, uncomplicated; Z79.899 Other long term (current) drug therapy
CPT/HCPCS: 36415; 93005; 93010; 99284-25

== ENCOUNTER 2019-05-18 21:43 | Inpatient (IN) | payer MEDICARE, OTHER ==
[~2019-05-18] VITALS: Ht 165.1 cm; Wt 59.1 kg
[~2019-05-18 21:43] MED LIST changes: +Cymbalta60 MG PO; +MIRT15 PO; +PANT20 PO
[2019-05-18 22:14] LABS: Source, Urine Catheter
[2019-05-18 22:15] LABS: BASOPHILS PERCENT AUTO 1 % (0-2); EOSINOPHILS ABSOLUTE AUTO 0.24 K/mm3 (0.00-0.68); EOSINOPHILS PERCENT AUTO 2 % (0-6); Hematocrit 37.6 % (33.0-51.0); Hemoglobin 12.2 g/dL (11.5-16.0); IMMATURE GRAN ABSOLUTE AUTO 0.07 K/mm3 (0.00-0.10); IMMATURE GRAN PERCENT AUTO 1 % (0-1); LYMPHOCYTES ABSOLUTE AUTO 4.26 K/mm3 (0.84-5.20); LYMPHOCYTES PERCENT AUTO 33 % (21-46); MONOCYTES ABSOLUTE AUTO 0.77 K/mm3 (0.16-1.47); MONOCYTES PERCENT AUTO 6 % (4-13); Mean Corpuscular HGB 31.9 pg (26.0-34.0); Mean Corpuscular HGB Conc 32.4 g/dL (31.5-36.5); Mean Corpuscular Volume 98 fL (80-100); Mean Platelet Volume 8.5 fL (9.1-12.4); NEUTROPHILS ABSOLUTE AUTO 7.54 K/mm3 (1.96-9.15); NEUTROPHILS PERCENT AUTO 58 % (41-73); Platelet Count 409 K/mm3 (150-400); RDW Coefficient Variation 11.9 % (11.7-14.2); RDW Standard Deviation 42.8 fL (35.1-46.3); Red Blood Cell Count 3.83 M/mm3 (3.80-5.20); White Blood Cell Count 12.98 K/mm3 (4.00-11.30)
[2019-05-18 22:18] LABS: Bilirubin, Urine Neg (Neg); Blood, Urine Neg (Neg); Glucose Qualitative, Urine Neg (Neg); Ketones, Urine Neg (Neg); Leukocyte Esterase, Urine Neg (Neg); Nitrite, Urine Neg (Neg); Protein, Urine 2+ (Neg); Urobilinogen, Urine NORM (Normal)
[2019-05-18 22:23] LABS: Appearance, Urine Clear (Clear); Color, Urine Yellow (P-Yellow)
[2019-05-18 22:24] LABS: White Blood Cells, Urine 0-2 /hpf (0-5)
[2019-05-18 22:25] LABS: Amorphous Light (0-Heavy); Bacteria Mod /hpf; Red Blood Cells, Urine Not Seen /hpf (0-2); Squamous Epithelial Cells Rare /hpf (Few)
[2019-05-18 22:34] LABS: U Amphetamine Screen Not Detected; U Barbituate Screen Not Detected; U Benzodiazapine Screen DETECTED; U Buprenorphine Screen Not Detected; U Cannabinoids Screen Not Detected; U Cocaine Screen Not Detected; U Methadone Screen Not Detected; U Methamphetamine Screen Not Detected; U Opiates Screen Not Detected; U Oxycodone Screen Not Detected; U Phencyclidine Screen Not Detected; U Propoxyphene Screen Not Detected
[2019-05-18 22:35] LABS: Acetaminophen, Random 2.5 ug/mL (10.0-30.0); Alanine Aminotransfer (ALT/SGP 41 U/L (12-78); Albumin, Blood 3.6 g/dL (3.4-5.0); Albumin/Globulin Ratio 1.2 (0.8-1.8); Alk Phos 67 U/L (50-136); Anion Gap 7 mmol/L (6-16); Aspartate Aminotrans (AST/SGOT 21 U/L (12-37); Bilirubin, Total 0.4 mg/dL (0.1-1.0); Blood Urea Nitrogen 18 mg/dL (8-24); Bun/Creatinine Ratio 24.5 (12.0-20.0); CO2, Blood 24 mmol/L (21-32); Calcium, Blood 8.6 mg/dL (8.5-10.1); Chloride, Blood 110 mmol/L (98-108); Creatinine, Blood 0.73 mg/dL (0.40-1.00); Glomerular Filtration Rate >60 (60-); Glucose, Blood 114 mg/dL (70-99); Potassium, Blood 3.1 mmol/L (3.5-5.5); Salicylate 5.5 mg/dL (2.8-20.0); Sodium, Blood 141 mmol/L (136-145); Total Protein, Blood 6.6 g/dL (6.4-8.2)
--- NOTE | 2019-05-19 | NUR ---
ASSUMPTION OF CARE: PT ARRIVED TO ICU FROM ED. DX OF MEDICATION OD. PT ABLE TO WAKE TO NAME BUT OTHERWISE VERY DROWSY. PER REPORT PT POTENTIALLY OD'D ON GABAPENTIN, REMERON, VISTARIL, AND/OR SEROQUEL. PT IS AFEBRILE. IN NSR WITH SOMEWHAT PROLONGED QT. SBP IN HIGH 80S TO LOW 90S HR IN THE 60S. LUNG SOUNDS CLEAR THROUGHOUT. SP02 >90% ON 2L NC. BT X 4. BM IN THE ED. TEMP BUCKLEY IN PLACE DRAINING CLEAR YELLOW URINE. 18G IN LFA 18G IN RFA-INFUSING. K+ ON ADMIT 3.1. PT IS CURRENTLY ON 1:1 WITH SITTER. RESTING COMFORTABLY. WILL CONT TO MONITOR.
--- NOTE | 2019-05-19 02:59 | NUR ---
SPOKE WITH POISON CONTROL. RECOMMENDED TO CONTINUE TO MONITOR SYMPTOMS, CARDIAC RHYTHM, AND QTC. RECOMMENDED TO REDRAW TYLENOL AND SALICYLATE TO SEE IF TRENDING UP.
[2019-05-19 03:38] LABS: Hematocrit 33.8 % (33.0-51.0); Hemoglobin 11.1 g/dL (11.5-16.0); Mean Corpuscular HGB 32.4 pg (26.0-34.0); Mean Corpuscular HGB Conc 32.8 g/dL (31.5-36.5); Mean Corpuscular Volume 99 fL (80-100); Mean Platelet Volume 8.5 fL (9.1-12.4); Platelet Count 354 K/mm3 (150-400); RDW Coefficient Variation 12.1 % (11.7-14.2); RDW Standard Deviation 43.7 fL (35.1-46.3); Red Blood Cell Count 3.43 M/mm3 (3.80-5.20); White Blood Cell Count 20.93 K/mm3 (4.00-11.30)
[2019-05-19 03:50] LABS: Acetaminophen, Random 4.5 ug/mL (10.0-30.0); Alanine Aminotransfer (ALT/SGP 34 U/L (12-78); Albumin/Globulin Ratio 1.1 (0.8-1.8); Alk Phos 54 U/L (50-136); Anion Gap 5 mmol/L (6-16); Aspartate Aminotrans (AST/SGOT 20 U/L (12-37); Bilirubin, Total 0.3 mg/dL (0.1-1.0); Blood Urea Nitrogen 17 mg/dL (8-24); Bun/Creatinine Ratio 27.5 (12.0-20.0); CO2, Blood 24 mmol/L (21-32); Calcium, Blood 7.8 mg/dL (8.5-10.1); Chloride, Blood 113 mmol/L (98-108); Creatinine, Blood 0.62 mg/dL (0.40-1.00); Globulin, Blood 2.7 g/dL (2.2-4.0); Glomerular Filtration Rate >60 (60-); Glucose, Blood 117 mg/dL (70-99); Potassium, Blood 4.4 mmol/L (3.5-5.5); Salicylate 2.9 mg/dL (2.8-20.0); Sodium, Blood 142 mmol/L (136-145); Total Protein, Blood 5.7 g/dL (6.4-8.2)
--- NOTE | 2019-05-19 04:57 | NUR ---
DR GASTELUM NOTIFIED OF PTS INCREASING WHITE COUNT AND SOFT BP. ORDERED NS BOLUS 500MLS NOW AND X 1 PRN IF NECESSARY. NO FURTHER ORDERS GIVEN
--- NOTE | 2019-05-19 05:18 | NUR ---
SHIFT SUMMARY: PT REMAINS DROWSY AND SEDATED. AFEBRILE. LUNG SOUNDS CLEAR. SPO2 >90% ON 2L NC. IN NSR, SBP IN HIGH 80-LOW 90S. 500ML BOLUS CURRENTLY INFUSING. HR IN THE 60S. BT PRESENT IN ALL 4. PT HAD BM IN ED. TEMP BUCKLEY IN PLACE DRAINING CLEAR YELLOW URINE. 18G IN LFA AND RFA. RFA INFUSING WITH NS.
--- NOTE | 2019-05-19 06:01 | NUR ---
1:1 SITTER REPORTS PT HAVING JERKING MOVEMENTS IN BED LASTING APPROX 1 MIN. PT APPEARS POST-ICTAL, UNABLE TO FOLLOW COMMANDS, DECREASED RESPONSIVENESS. CALL PLACED TO DR. GASTELUM AND ISSAC LEFT
--- NOTE | 2019-05-19 06:10 | NUR ---
POISON CONTROL POISON CONTROL NOTIFIED OF POSSIBLE SEIZURE ACTIVITY NOTED BY SITTER AT BEDSIDE. RECOMMENDATION IS TO USE BENZODIAZEPINES NEEDED FOR SEIZURE ACTIVITY AND TO POSSIBLY CHECK CK LEVEL. WILL DISCUSS WITH MD WHEN AVAILABLE.
--- NOTE | 2019-05-19 06:10 | NUR ---
CALL RECEIVED FROM DR GASTELUM. NO ORDERS AT THIS TIME. ADVISED TO MONITOR PATIENT.
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
--- NOTE | 2019-05-19 12:02 | NUR ---
Attempted to meet with patient for a Safety Plan in case patient did not tranfer again to acute inpatient psych. She was not willing to talk. She gave verbal consent to update her mother and stepfather regardng her care. AUSTEN Vitale and I witness. Jacqueline Garcia is mother, phone numbers left for Neuropsychology Division Chief for the 2 MD Hold review to contact. Educated thhe parents on length of holds and addiction behaviors. Parents expressed they would like to discuss further involuntary if possible. They report patient left [facility] after 3 days of treatment, came home and did use meth again. Report patient's boyfriend, Jatin, is very supportive of her. Mother says patient got worse after her father's 4 years ago. Mother alluded that the two drank heavily together. Patient on involuntary hold. Admitted 05/06/19 for OD suicide attempt, cut self while in ICU after tearing apart pulse ox on her finger, DC 05/09 to [facility]. Patient admitted again last night for OD. Dr. Estrada updated with parents' concerns and of alert given to [facility] Neuropsychology Division Chief. Roxie Atwood M.Ed., [facility]
--- NOTE | 2019-05-19 16:08 | NUR ---
INITIAL ASSESMENT PT ALSEEP BUT AROUSABLE AND BECOMES VERY AGGITATED WHEN WOKE. 1:1 SITTER AT BEDSIDE PER SUICIDE PRECAUTIONS. ROOM CLEARED AND SECURE OF HARMFUL ITEMS AND CLOSE OBSERVATION IN PLACE. VSS, AFEBRILE NSR AND NO EDEMA 2LO NC AND WILL WEAN TOLERATED. UO ADEQUATE CLEAR AND YELLOW PER BUCKLEY. ABD SOFT ROUND AND NON TENDER. PT REFUSING MOST CARE. SKIN INTACT WILL CONT 1:1 OBS AND MONITOR
--- NOTE | 2019-05-19 20:00 | NUR ---
ASSUMPTION OF CARE ASSUMED CARE OF PT AT 1900. PT RESTING IN BED, AROUSES TO VERBAL STIMULI, ORIENTED TO SELF AND PLACE, FOLLOWING DIRECTIONS. LS CLEAR, O2 SATURATIONS ABOVE 90% ON RA. MONITOR SHOWS NORMAL SINUS RHYTHM WITH RATE IN THE 60'S. BUCKLEY IN PLACE, DRAINING CLEAR YELLOW URINE. PT REPORTS MILD PAIN TO L HIP, BETTER WITH REPOSITIONING, REPOSITIONS SELF IN BED.
--- NOTE | 2019-05-19 21:00 | NUR ---
DISCUSSED PTS SUICIDE REASSESSMENT WITH CHARGE NURSE ARLINE Wright AND NURSING SALVAGE ENGINEER JOE Mckeon. DECISION MADE TO MAINTAIN PT ON "HIGH SUICIDE RISK" AND 1:1 MONITORING DUE TO PTS HX OF SELF HARM AND INABILITY OF ACCURATE PSYCH CONSULT DUE TO PTS RESPONSIVENESS (SEE DR NICHOLE'S NOTE)
[2019-05-19 21:44] LABS: U Amphetamine Screen Not Detected; U Barbituate Screen Not Detected; U Benzodiazapine Screen DETECTED; U Buprenorphine Screen Not Detected; U Cannabinoids Screen Not Detected; U Cocaine Screen Not Detected; U Methadone Screen Not Detected; U Methamphetamine Screen Not Detected; U Opiates Screen Not Detected; U Oxycodone Screen Not Detected; U Phencyclidine Screen Not Detected; U Propoxyphene Screen Not Detected
[2019-05-20 03:37] LABS: BASOPHILS ABSOLUTE AUTO 0.07 K/mm3 (0.00-0.23); BASOPHILS PERCENT AUTO 0 % (0-2); EOSINOPHILS ABSOLUTE AUTO 0.25 K/mm3 (0.00-0.68); EOSINOPHILS PERCENT AUTO 2 % (0-6); Hematocrit 35.2 % (33.0-51.0); Hemoglobin 11.3 g/dL (11.5-16.0); IMMATURE GRAN ABSOLUTE AUTO 0.09 K/mm3 (0.00-0.10); IMMATURE GRAN PERCENT AUTO 1 % (0-1); LYMPHOCYTES ABSOLUTE AUTO 2.55 K/mm3 (0.84-5.20); LYMPHOCYTES PERCENT AUTO 15 % (21-46); MONOCYTES ABSOLUTE AUTO 0.89 K/mm3 (0.16-1.47); MONOCYTES PERCENT AUTO 5 % (4-13); Mean Corpuscular HGB 31.6 pg (26.0-34.0); Mean Corpuscular HGB Conc 32.1 g/dL (31.5-36.5); Mean Corpuscular Volume 98 fL (80-100); Mean Platelet Volume 8.4 fL (9.1-12.4); NEUTROPHILS ABSOLUTE AUTO 12.92 K/mm3 (1.96-9.15); NEUTROPHILS PERCENT AUTO 77 % (41-73); Platelet Count 362 K/mm3 (150-400); RDW Coefficient Variation 12.2 % (11.7-14.2); RDW Standard Deviation 44.5 fL (35.1-46.3); Red Blood Cell Count 3.58 M/mm3 (3.80-5.20); White Blood Cell Count 16.77 K/mm3 (4.00-11.30)
[2019-05-20 04:14] LABS: Albumin, Blood 2.9 g/dL (3.4-5.0); Anion Gap 5 mmol/L (6-16); Blood Urea Nitrogen 14 mg/dL (8-24); Bun/Creatinine Ratio 18.1 (12.0-20.0); CO2, Blood 24 mmol/L (21-32); Chloride, Blood 117 mmol/L (98-108); Creatinine, Blood 0.77 mg/dL (0.40-1.00); Glomerular Filtration Rate >60 (60-); Glucose, Blood 75 mg/dL (70-99); Phosphorus, Blood 3.2 mg/dL (2.5-4.9); Sodium, Blood 146 mmol/L (136-145)
--- NOTE | 2019-05-20 05:47 | NUR ---
SHIFT SUMMARY PT RESTED T/O SHIFT, AROUSES EASILY WITH NURSING CARE AND VERBAL STIMULI. SOME AGITATION AND CONFUSION, PT EASILY REORIENTED/REDIRECTED, PULLED OUT IV EARLY IN SHIFT. PT MAINTAINS O2 ABOVE 90% ON RA, LS CLEAR T/O. MONITOR SHOWS NSR, RATE 60'S, RHYTHM STRIP SHOWS SLIGHT INCREASE IN QT PROLONGATION, SEE PTS CHART. BP REMAINS STABLE T/O SHIFT. TMAX 99.5. BUCKLEY REMAINS IN PLACE, DRAINING CLEAR, DARK YELLOW URINE.
--- NOTE | 2019-05-20 08:00 | NUR ---
INITIAL ASSESMENT PT ALSEEP BUT AROUSABLE AND BECOMES VERY AGGITATED WHEN WOKE. 1:1 SITTER AT BEDSIDE PER SUICIDE PRECAUTIONS. ROOM CLEARED AND SECURE OF HARMFUL ITEMS AND CLOSE OBSERVATION IN PLACE. VSS, AFEBRILE NSR AND NO EDEMA RA CLEAR AND DIM BILATERALLY AND NO S/S OF RESP DISTRESS OR SOB AT THIS TIME. UO ADEQUATE CLEAR AND YELLOW PER STANDBY ASSIST TO TOILET. ABD SOFT ROUND AND NON TENDER. WITH GOOD APPETITE AND NO C/O N/V WITH NO BM AT THIS TIME PT REFUSING MOST CARE. SKIN INTACT WILL CONT 1:1 OBS AND MONITOR
--- NOTE | 2019-05-20 12:00 | NUR ---
PT UPDATE PT DOWN GREADED TO MS AYALA AND MD AT BEDSIDE. PT AGITATED AT TIMES AND HARD TO REDIRECT. PT WANTS TO GO OUTSIDE AND SMOKE WITH NICOTENE PATCH APPLIED TO LEFT DELTOID PER MD ORDER. PT VERY QUICK TO GET OOB AND CLOSE MONITORING REQUIRED. WILL CONT TO MONITOR
--- NOTE | 2019-05-20 12:25 | NUR ---
[facility]: Zora is a 53 year old lady with a history of SVT,OA, hepatitis C, depression, ETOH and meth use. She has a history of suicidal ideation. She was recently discharged from [facility] to [facility], an inpatient treatment facility. However, she was only there 2 days and went home. She was admitted back to [facility] on 05/19/19 for an overdose. She is currently on a 2 MD hold. She is awake and willing to visit with this policy writer sales. She reports that she is hungry and that she didn't eat her breakfast because she was too sleepy this morning. Offered to get her a snack, however she declined and stated she would wait until lunch is served. She has a flat affect and at times maintains some eye contact. She reports that she is unhappy with the poor choices she has made and is angry with herself. She reports she has been in a relationship with her S.O for more than 20 years and she is afraid that "He will hate me because I told him I wouldn't do this anymore and I did." She is tearful at times during our conversation. She reports that her father several years ago and that she has struggled with that loss. She reports that she believes her mother is still alive. She has no children. She states she has struggled with anxiety her whole life. She also reports that she keeps all of her feelings bottled up inside. She states that she has chronic shoulder pain and that the pain gets so bad sometimes that she doesn't see a reason to live. She reports that she has tried lidocaine patches and creams, heat and ice and physical therapy all of which have not helped. She states that smoking marijuana does help the pain in her shoulder sometimes. She reports that her shoulder pain has caused her to be disabled. 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 She misses working as a cook and states that she feels poorly that her S.O. works so hard and she hasn't been able to. She states she turned to ETOH and drugs to help her escape her physical pain. It appears that she likely has a lot of emotional pain as well. She feels she has "hit the bottom" and is willing to seek treatment "If it will help." She has feelings of hopelessness. Encouraged her to find reasons in her life that make her life worth living. She states that she has pets who she enjoys but has no one else. When asked about her S.O. she states that she is afraid she has screwed that up and states she would not blame him if he chose to not have a relationship with her anymore. She is requesting to go outside to smoke. Explained hospital policy and that she has a nicotine patch on. She reports she smokes up to 2 packs per day. Allowed her to talk about her life and feelings of hopelessness. Encouraged her seek assistance and to forgive herself. She states "I can't go back and undo things." Encouraged her to focus on her future even if it's one hour at a time. Zora may benefit from non pharmacologic and some non narcotic pain management. She reports she has never seen a pain specialist for her shoulder pain. Offer use of heat, cooling and repositioning. Could consider a lidoderm patch and possibly some aroma therapy to assist with pain relief. She will likely also benefit from mental health counseling. Most of this visit was therapeutic in nature. Waiting for Dr. Oliveros to do his evaluation. Plan of care TBD. PC will continue to follow for symptom management.
--- NOTE | 2019-05-20 21:00 | NUR ---
ASSUMPTION OF CARE ASSUMED CARE OF PT AT 1900, PT A&O x4, DENIED SI. LS CLEAR T/O, PT ON RA. MONITOR SHOWS NSR. PT COMPLAINS OF SOME DISCORMFORT TO RED AREA, URGENCY TO URINATE AND SOMETIMES INABILITY TO URINATE. INFORMED PT THAT DISCOMFORT MAY BE DUE TO RECENT BUCKLEY REMOVAL. PT PLEASANT AND COOPERATIVE AT THIS TIME. TOLERATING PO INTAKE WELL.
[2019-05-21 03:26] LABS: BASOPHILS ABSOLUTE AUTO 0.08 K/mm3 (0.00-0.23); BASOPHILS PERCENT AUTO 1 % (0-2); EOSINOPHILS ABSOLUTE AUTO 0.33 K/mm3 (0.00-0.68); EOSINOPHILS PERCENT AUTO 2 % (0-6); Hematocrit 35.1 % (33.0-51.0); Hemoglobin 11.7 g/dL (11.5-16.0); IMMATURE GRAN ABSOLUTE AUTO 0.04 K/mm3 (0.00-0.10); IMMATURE GRAN PERCENT AUTO 0 % (0-1); LYMPHOCYTES ABSOLUTE AUTO 2.64 K/mm3 (0.84-5.20); LYMPHOCYTES PERCENT AUTO 17 % (21-46); MONOCYTES ABSOLUTE AUTO 0.82 K/mm3 (0.16-1.47); MONOCYTES PERCENT AUTO 5 % (4-13); Mean Corpuscular HGB 31.8 pg (26.0-34.0); Mean Corpuscular HGB Conc 33.3 g/dL (31.5-36.5); Mean Platelet Volume 8.2 fL (9.1-12.4); NEUTROPHILS ABSOLUTE AUTO 11.39 K/mm3 (1.96-9.15); NEUTROPHILS PERCENT AUTO 74 % (41-73); Platelet Count 359 K/mm3 (150-400); RDW Coefficient Variation 11.8 % (11.7-14.2); RDW Standard Deviation 41.4 fL (35.1-46.3); Red Blood Cell Count 3.68 M/mm3 (3.80-5.20)
[2019-05-21 03:28] LABS: Mean Corpuscular Volume 95 fL (80-100)
[2019-05-21 03:48] LABS: Albumin, Blood 3.1 g/dL (3.4-5.0); Anion Gap 5 mmol/L (6-16); Blood Urea Nitrogen 14 mg/dL (8-24); Bun/Creatinine Ratio 21.7 (12.0-20.0); CO2, Blood 28 mmol/L (21-32); Calcium, Blood 8.5 mg/dL (8.5-10.1); Chloride, Blood 107 mmol/L (98-108); Creatinine, Blood 0.65 mg/dL (0.40-1.00); Glomerular Filtration Rate >60 (60-); Glucose, Blood 94 mg/dL (70-99); Phosphorus, Blood 4.3 mg/dL (2.5-4.9); Potassium, Blood 4.1 mmol/L (3.5-5.5); Sodium, Blood 140 mmol/L (136-145)
--- NOTE | 2019-05-21 05:25 | NUR ---
SHIFT SUMMARY PT AWAKE FOR MOST OF SHIFT, A&O x4, SOME ANXIETY, PRN ATIVAN PROVIDED. PT UP TO RESTROOM FREQUENTLY T/O SHIFT, AMBULATES WELL INDEPENDENTLY. MONITOR SHOWS NSR T/O SHIFT, RATE 60'S-80'S, QT SEGMENT DECREASED FROM PREVIOUS SHIFT. PT MAINTAINS O2 SATURATIONS ABOVE 90% ON RA. TOLERATING PO INTAKE WELL, NO GI COMPLAINTS, COMPLAINTS OF FREQUENCY AND URGENCY.
--- NOTE | 2019-05-21 13:33 | NUR ---
REASSESSMENT: PT HAS BEEN RESTING IN BED THROUGHOUT THE MORNING. SHE IS GETTING UP TO VOID INDEPENDENTLY. SHE DENIES ANY SI. SR, BP STABLE. DIDN'T EAT ANY OF HER BREAKFAST OR LUNCH. NO REQUESTS FROM PT AT THIS TIME.
--- NOTE | 2019-05-21 16:29 | NUR ---
SHIFT SUMMARY: PT CONTINUED TO REST IN BED WITH HER EYES CLOSED THROUGHOUT THE DAY. SHE DENIED SI THIS MORNING, BUT REMAINS ON 1:1 SITTER. LUNGS ARE CLEAR, SR, BP STABLE, AFEBRILE, VOIDING INDEPENDENTLY. NO OTHER REQUESTS AT THIS TIME.
--- NOTE | 2019-05-21 21:14 | NUR ---
MEAL TRAY REMOVED C/ PLASTIC SPOON, FORK, AND KNIFE, PLATE LID AND SANDWICH BAG. LEFT ON PT TABLE TWO CUPS C/ STRAWS TWO CONTAINERS OF RANCH DRESSING, ONE PLASTIC SNACK CUP OF APPLES C/ LID, TWO SMALL BAGS OF POTATO CHIPS. SITTER IN DOORWAY C/ FULL VIEW OF PT.
[2019-05-22 03:49] LABS: Hematocrit 39.7 % (33.0-51.0); Hemoglobin 13.3 g/dL (11.5-16.0); Mean Corpuscular HGB 31.2 pg (26.0-34.0); Mean Corpuscular HGB Conc 33.5 g/dL (31.5-36.5); Mean Corpuscular Volume 93 fL (80-100); Mean Platelet Volume 8.3 fL (9.1-12.4); Platelet Count 356 K/mm3 (150-400); RDW Coefficient Variation 11.6 % (11.7-14.2); RDW Standard Deviation 39.7 fL (35.1-46.3); Red Blood Cell Count 4.26 M/mm3 (3.80-5.20); White Blood Cell Count 10.78 K/mm3 (4.00-11.30)
--- NOTE | 2019-05-22 05:21 | NUR ---
END OF SHIFT: PT RESTED QUIETLY T/O NOC. VSS. PT CONSUMED 100% OF HER DINNER. SITTER REMAINED AT DOORWAY ENTIRE SHIFT. SITTER THREW AWAY DINNER TRAY CUPS ETC LISTED IN PREVIOUS NOTE. PT'S SISTER ASHU CALLED AND WAS UPDATED.
--- NOTE | 2019-05-22 10:44 | NUR ---
PT ASSESSED AT 0730 THIS AM. PT SLEEPING, AROUSED TO VOICE AND LIGHT TOUCH. PT ASKED ABOUT CURRENT SI STATUS; PT SLOW TO RESPOND, WHISPERS, AVOIDS DIRECT EYE CONTACT, FLAT AFFECT, "I DONT KNOW I JUST FEEL REALLY CONFUSED RIGHT NOW". PT DECLINED BREAKFAST. VSS. DR GOEL IN TO SEE PT. TELEMETRY DC'D. [facility] IN TO EVALUATE PT THIS AM; POSSIBLE RECOMMENDATION EXTENDED HOLD W PLACEMENT. DR NICHOLE IS EXPECTED TO SEE PT TODAY. PT SLEEPING NOW, 1:1 SITTER AT BEDSIDE.
--- NOTE | 2019-05-22 12:02 | NUR ---
PT WOULD NOT STATE YES OR NO TO THESE QUESTIONS, STATES I DONT KNOW, IM CONFUSED. ANSWERS SHOULD BE DOCUMENTED UNKNOWN, BUT ONLY ALLOWS FOR Y OR N.
--- NOTE | 2019-05-22 14:21 | NUR ---
Met with patient to attempt Safety Plan again. Still is energy and muted talking. Appears depressed. She reports not wanting to live, and states that her boyfriend Jatin "hates her". Reports from her parents in conversationw with them Wednesday revealed he has been very attentive since her last admit. Discussed her need for treatment, as she has used alcohol for many years, and stopped in April prior to her last admit to ICU with OD. Discussed feelings that she has been self medicating for years may flood her. She was able to sort of smile briefly as I said I poked and prodded mojgan I talked with the nurse about patient's request for anxiety med- Patient remains on 1:1 in her ICU room. Roxie Atwood M.Ed., QM-C
--- NOTE | 2019-05-22 14:33 | NUR ---
Patient encouraged to eat her lunch as I was leaving. !:1 sitter helped her, as patient leaned forward to go toward tray Patient asked if her mothre had come earlier--1:1 reported mom did not want to disturb her slleeping. Patient offered to call om-she did not want to interupt her work. Informed patient I met with mom and eugenie Wednesday, and informed her both were very concerned about her
--- NOTE | 2019-05-22 15:33 | NUR ---
review of patient with nursing
--- NOTE | 2019-05-22 15:51 | NUR ---
PT HAS SLEPT ALMOST ENTIRE SHIFT THUS FAR. POOR APPETITE; HAS REFUSED MOST FOOD BUT DRINKING WATER. UP TO VOID W/O DIFF. 1:1 SITTER HAS BEEN SITTING AT BEDSIDE ENTIRE SHIFT. DR NICHOLE INTO SEE PT; SEE NEW ORDERS. HOLD TO BE EXTENDED 14DAYS WHILE LOOKING FOR INPATIENT PLACEMENT. PT TO BE TRANSFERED TO [facility] FLOOR ROOM 353. REPORT GIVEN TO KHAI BOYCE.
--- NOTE | 2019-05-22 16:10 | NUR ---
TRANSFER PT ARRIVED TO THE MEDICAL FLOOR FROM THE ICU VIA WHEELCHAIR, A/OX3, SOMULANT, THE PT APPEARED TO BE BREATHING EASILY ON RA, THE PTS ROOM WAS CLEARED FOR HIGH RISK SI BY THE SALOON KEEPER LAURA PRIOR TO THE PT ARRIVING TO THE FLOOR, THE PT WAS ACCOMPANIED BY A 1:1 SITTER, THE OVERHEAD CAMERA/MONITOR WAS TURNED ON PER THE SALOON KEEPER, THE PT APPEARS COMFORTABLE AT THIS TIME WILL CONTINUE TO MONITOR AND ASSESS FOR CHANGES, REPORT WAS TAKEN FROM SUJATHA MICA LAMINATING MACHINE FEEDER, THE PT BREATH SOUNDS WERE CLEAR, I AGREE WITH THE MICA LAMINATING MACHINE FEEDERTUTOR COORDINATOR
--- NOTE | 2019-05-22 17:36 | NUR ---
PT IS A/OX3, COOPERATIVE, SOMULANT, THE PT HAS BEEN RESTING IN BED, UP WITH MINIMAL ASSIST, THE PT WAS GIVEN ATERAX X1 SO FAR THIS SHIFT FOR ANXIETY, THE PTS SISTER CALLED THIS [employer] TO CHECK ON THE PT AND REQUESTED THAT THE EDGER OPERATOR BE GIVEN HER NUMBER AND THAT THE PT HAD REQUESTED TO MAKE HER POA LAST ADMISSION AND WAS ASKING IF WE COULD START THAT PROCESSESS UNDER THE PTS AGREEMENT, WILL LEAVE MESSAGE WITH S/S, THE PTS SO IS AT THE BEDSIDE AT THIS TIME, 1:1 SITTER IS AT THE BEDSIDE, CALL LIGHT IN REACH, WILL CONTINUE TO MONITOR AND ASSESS FRO CHANGES
--- NOTE | 2019-05-23 06:29 | NUR ---
SUMMARY: PT A/OX4 BUT IS VERY WITHDRAWN W/FLAT AFFECT AND LACKS INTERACTION W/ STAFF. SHE SPECIFIES NEEDS BUT IS SUCCINT IN DOING SO. PT WAS MEDICATED W/RN ZONEELAM PRN FOR NAGGING NAUSEA, ATARAX FOR ANXIETY AND TYLENOL FOR GIPSON FOR GOOD EFFECTS. SHE SLEPT MOST OF NOCTE EXCEPT TO USE BATHROOM. 1:1 SITTER PRESENT IN ROOM AT ALL TIMES AND CAMERA MONITORING IN PLACE FOR HIGH RISK SI. PT DENIES ANY CURRENT IDEATION OR PLAN BUT PT'S SISTER SAYS THIS IS UNTRUTHFUL SINCE PT HAS HAD MULTI ATTEMPTS, A TRAUMATIC PSYCH HX AND SAYS PT FEARS WHAT WILL HAPPEN TO HER IF SHE'S HONEST. HER SISTER IS ATTEMPTING TO OBTAIN POA AT PT'S REQUEST. 14 DAY HOLD IS CURRENTLY IN PLACE WHILE IN PATIENT PSYCH IS ARRANGED. VSS/AFEBRILE, NO ACUTE CHANGES. WCTM AND REPORT TO DAY RN.
--- NOTE | 2019-05-23 17:57 | NUR ---
PT IS A/OX3, COOPERATIVE, SOMULANT, THE PT APPEARS TO BE BREATHING EASILY ON RA, THE PT WAS MEDICATED FOR GIPSON X2 TODAY, THE PT WAS MEDICATED FOR ANXIETY T/O THE DAY, 1:1 SITTER AT THE BEDSIDE T/O THE DAY, PROFESSOR/NURSE ANESTHETIST FROM [facility] AND THE PTS COURT APPOINTED ATTORNY VISITED THE PT TODAY, THE PTS S/O IS AT THE BEDSIDE AT THIS TIME, OVERHEAD MONITOR IS, WILL CONTINUE TO MONITOR FOR CHANGES
--- NOTE | 2019-05-24 05:58 | NUR ---
SUMMARY: PT A/OX4, REMAINS ON SI PRECAUTIONS W/CAMERA MONITORING AND 1:1 SITTER AT ALL TIMES. SHE'S DENIED ANY CONTINUED SI OR PLAN BUT UNDERSTANDS INPATIENT PSYCH IS NEEDED W/[address] WHILE PLACEMENT IS ARRANGED. PT RECIEVED ATARAX PRN FOR SLEEP AND TYLENOL FOR RELIEF OF GIPSON. SBA PROVIDED TO TOILET AND PT CONT'S TO HAVE SLIGHT DIZZINESS W/AMBULATION, DANGLE ENCOURAGED. SHE SEEMED IN BETTER SPIRITS THIS SHIFT AND INTERACTED MORE W/STAFF. SHE ADMITTED THAT SEEING HER FOR SOME TIME DURING THE DAY WAS VERY BENEFICIAL. NO ACUTE CHANGES, VSS/AFEBRILE. WCTM AND REPORT TO DAY RN.
--- NOTE | 2019-05-24 19:30 | NUR ---
SHIFT SUMMARY PT AWAKE AT START OF SHIFT WITH 1:1 SITTER AND CAMERA D/T SI PRECAUTIONS AND HOLD. PT CURRENTLY WAITING ALF INPT PSYCH FAUCILITY D/T MULTIPLE ATTEMPTS. PT IS SBA TO [facility], CALLS APPROPRIATELY WHEN NEEDED. WAS PLEASANT AND TALKATIVE TODAY TO SITTER AND STAFF, BUT LATER BECAME MORE QUIET WITH FLAT AFFECT. DR BARNEY IN TO SEE PT THIS AM; NO NEW ORDERS. DR NICHOLE IN TO SEE PT LATER TODAY; MEDS CHANGED FOR HS. PT MOTHER IN TO VISIT THIS AM. SISTER CALLED FROM OUT OF STATE A COUPLE OF TIMES TO [facility] ON PT. PHONE TAKEN IN TO ALLOW PT TO CALL OUT TODAY. PHONE REMOVED WHEN FINISHED. [facility] CALLED TO REPORT 2 BEDS AVAILABLE TODAY FOR INPT PSYCH; HEALTHCARE ANALYST NOTIFIED. IV TO RFA BECAME TENDER AND D/T BE CHANGED PER ROTATION. MEW IV PLACED TO RFA. IV ABX INFUSED PER EMAR. SITTER ALSO ASSISTS IN CALLING FOR NEEDS. REPORT GIVEN TO ONCOMING RN.
--- NOTE | 2019-05-25 06:47 | NUR ---
SOLAR ENERGY SYSTEM INSTALLER HELPER SUMMARY PT SLEPT ALL NIGHT. 1:1 SUPERVISION WITH SITTER AND CAMERA DUE TO SI PRECAUTIONS. PT DENIED HAVING THOUGHT OF HARMING SELF. DENIED PAIN, NAUSEA, DIZZINESS. PT SELF AMBULATORY TO BATHROOM AND CALLS OUT APPROPRIATELY WHEN BATHROOM USE IS NEEDED. AWAITING PLACEMENT FOR INPAITENT PYCH.
--- NOTE | 2019-05-26 06:00 | NUR ---
NUCLEAR FUELS RECLAMATION ENGINEER SUMMARY PT SLEPT ALL NIGHT. 1:1 SUPERVISION WITH CAMERA MONITORING. PT REQUESTED MEDS TO BE GIVEN EARILER TONIGHT SO SHE COULD GO TO BED. PT DENIED ANY HARMFUL THOUGHTS AND DID NOT ACT UPON ANYTHING HARMFUL. NO ACUTE CHANGES.
--- NOTE | 2019-05-26 08:09 | NUR ---
VITALY RECEIVED CALL FROM KEVIN AT [facility] INQUIRING ABOUT PROGRESS FINDING PT INPT CARE. PASSED NAME AND NUMBER TO CASE MANAGMENT. PER SUNIL JOHNS GETTING MESSAGE AND WOULD RETURN CALL TO KEVIN
--- NOTE | 2019-05-26 14:40 | NUR ---
ST RAMÍREZ T/C FROM AMINTA GARCIA FROM [facility] IN [place], RE: QUESTIONS ON PT BEHAVIOR, MENTAL AND MEDICAL STATUS. PT HAS BEEN PLEASANT AND COOPERATIVE FOR THIS RN FOR TWO DAYS, NO ACTING OUT, DENIES SUICIDE IDEATION AT THIS TIME, PO ABX TO BE FINISHED THIS EVENING. THIS RN AVAILABLE UNTIL 1900 IF FURTHER QUESTIONS ARISE.
--- NOTE | 2019-05-26 14:45 | NUR ---
NO IV NEEDED T/C TO DR AVALOS, ORDERS RECEIVED TO D/C IV AND CHANGE IV ZOFRAN TO PO.
--- NOTE | 2019-05-26 15:39 | NUR ---
ST RAMÍREZ T/C FROM AMINTA GARCIA AT [facility], AFTER CONSULTATION WITH THEIR PSYCHIATRIST, IT WAS DECIDED THAT [facility] WAS NOT A GOOD FIT FOR PT AT THIS TIME AND ARE DENYING THE PT. AMINTA SAYS THAT THEY BELIEVE PT NEEDS A FACILITY WITH INTEGRATED CARE WHERE PT CAN MOVE BETWEEN LEVELS OF CARE NEEDED. PER AMINTA PT IS STILL TOO HIGH RISK FOR THEIR FACILITY, [facility] MAY REREFER NEXT WEEK IF THINGS CHANGE. STEPHANE DONNELLY, MACADAM RAKER, NOTIFIED.
--- NOTE | 2019-05-26 17:39 | NUR ---
PT QUIET, PLEASANT AND COOPERATIVE TODAY. 1:1 SITTER AND CAMERA MONITORING REMAINS. PT DENIES SUICIDE IDEATION TODAY. ATARAX DOSE INCREASED FROM 25 MG TO 50 MG PRN FOR ANXIETY. PT REQUESTED THAT LFA IV SITE BE REMOVED. DISCONTINUED WITH ORDERS FROM DR AVALOS. NO ACUTE CHANGES NOTED THIS SHIFT. WILL CONTINUE TO MONITOR AND REPORT TO ONCOMING RN
--- NOTE | 2019-05-27 06:42 | NUR ---
SHIFT SUMMARY PT IS A 53 Y/O FEMALE, ADMITTED FOR OVERDOSE AND CURRENTLY ON A 1:1 SITTER FOR SI. SHE IS A&O X 3, AND HAS BEEN APPROPRIATE THROUGH THE NIGHT. PT DENIED ANY SI ON ASSESSMENT. NO COMPLAINTS OF PAIN, NAUSEA OR SOB. VITALS STABLE. NO ACUTE CHANGES IN PT CONDITION NOTED. WILL CONTINUE TO MONITOR AND TREAT PER EMAR UNTIL HAND OFF TO DAY SHIFT RN.
--- NOTE | 2019-05-27 13:30 | NUR ---
SHE HAS LAYED QUIETLY IN BED ALL DAY, MOSTLY LOOKING OUT HER BIG PICTURE WINDOW. THE SITTER IS ON THE OTHER SIDE OF THE BED NEAR THE HEAD, NIDA HAS NOT HAD ANY REQUESTS EXCEPT FOOD, DRINK, AND ANXIETY MEDICINE. SHE DENIES ANY SUICIDAL THOUGHTS BUT ADMITS TO BEING BORED. SHE SAID SHE WAS BORED AT HOME TOO. PHYSICAL ASSESSMENT NEGATIVE.
--- NOTE | 2019-05-27 17:41 | NUR ---
SHE DENIES SUICIDAL IDEATION TO ME BUT I THINK SHE SAYS THAT AUTOMATICALLY. SHE DOESN'T THINK ABOUT IT WHEN ASKED. DANG PRESENT. SHE RECEIVED ATARAX X2 SO FAR TODAY FOR HER ANXIETY. HER ANXIETY IS QUIET AND WITHDRAWN. SHE USES HER I.S. WELL. SHE GETS IT UP TO 2500.
--- NOTE | 2019-05-28 06:54 | NUR ---
SHIFT SUMMARY PT IS A 53 Y/O FEMALE, ADMITTED FOR OVERDOSE AND SI. PT IS A 1:1 SITTER. SHE IS A&O X 4 AND INDEPEDENT TO THE BATHROOM. PT DENIED ANY COMPLAINTS OF PAIN, NAUSEA OR SOB. VITAL SIGNS STABLE. PT IS STILL DENYING ANY CURRENT SI. NO ACUTE CHANGES IN PT CONDITION NOTED. REPORT GIVEN TO ONCJAMAL BOYCE.
--- NOTE | 2019-05-28 12:50 | NUR ---
SHE IS WATCHING TV. SHE AND HER SITTER ARE VISITING WITH EACH OTHER. SHE DENIES SUICIDAL IDEATION.
--- NOTE | 2019-05-28 18:11 | NUR ---
NO CHANGE IN CONDITION. SHE DENIES SUICIDAL IDEATION. SITTER AT BEDSIDE. EATING AND DRINKING WELL. MEDICATED FOR ANXIETY WITH ATARAX X3.
--- NOTE | 2019-05-28 21:30 | NUR ---
Asked patient about suicidal ideation and if she had any plans to harm herself. She denied all thoughts and plans for self harm. She stated she feels better after a medication adjustment and she hasn't considered harming herself in "a few days". Sitter at bedside. Safe room set-up in place. Ligature risks removed/managed.
--- NOTE | 2019-05-29 04:29 | NUR ---
Shift Summary Patient slept well overnight. She denies suicidal ideation. Suicide hold note.
--- NOTE | 2019-05-29 08:33 | NUR ---
Handouts on Emotional Regulation Skills and "What to do after an attempt"--to give to her boyfriend after reading. Patient continues on 1:1 due to continuedd due to 2 suicide attempts within 2 weeks, and cutting herself while in ICU after her first attempt. She is on a 14 day diversion. She was on a Hold and admitted to [facility] inpatient psych, but left within 2 days as her Hold , She returned home and overdosed again. She has a history of heavy alcohol use an meth. She is in need of acute psychiatric services due to a history of trauma which she has been medicating with alcohol and drugs since a teenager. Her depression and axiety attacks worsened as she tried to quit substances before her first OD. She was not eating during her current stay on the medical floor while awaiting transfer to inpatient psych. Her court commitment diversion papers are in her paper chart, and indicate the severity of her mental illness and risk for harm. Roxie Atwood M.Ed., [facility] Director Behavioral Health
--- NOTE | 2019-05-29 10:53 | NUR ---
Visited with patient to review Safety Plan again. She still had the plan we worked on and was able to report back the plan to call crisis phone and to go to [facility] for therapy and meds. Pt reported [facility] had visited this morning and had also reinforced that Zora is to go to [facility] for treatment. Dr. Estrada informed of patient improving. Roxie Atwood
--- NOTE | 2019-05-29 16:55 | NUR ---
PT AOX4 AND COOPERATIVE OF CARE. PT IS LOW RISK NOW FOR SI PER DR NICHOLE. PT IS NOW JUST ON CAMERA SURVILENCE. PT STATES SHE WILL BE HAPPY TO BE HOME AND HAS HAD NO THOUGHTS OF HARMING HERSELF. PT WALKS AROUND INDEPENDENT ROOM AND HAS SAT OUT IN THE POTTS TODAY. TREATED PER EMAR FOR ANXIETY WILL CONTINUE TO MONITOR.
--- NOTE | 2019-05-30 04:38 | NUR ---
SHIFT SUMMARY NIDA HAS APPEARED TO BE SLEEPING ALL NIGHT. SHE WAS GIVEN ATARAX AT 1900. SHE HASN'T GONE OUT TO SMOKE THIS SHIFT. HER LS WERE CLEAR T/O AND HER BT+ X4. SHE IS PLEASANT AND COOPERATIVE.
--- NOTE | 2019-05-30 09:12 | NUR ---
Appoinment confirmed for 06-01-19 11 am at [facility] with Vi Reyes LCSW. Vi was present while I was talking with patient this morning and giving her the written appointment. Patient reported she had done fine without a sitter and did not have SI. She reported her Cymbalta was increased to 90 mg, and she felt a little shaky. Vi interacted with patient to discuss possible discharge and the [address] patiet is curretly on Patient RN and Charge nurse informed of need to have a signed release of hold form if patient does get discharged today. Zora smiled and was able to joke a bit. Her mood appears elevated from her deep depression and inability to verball interact at admit. Her hygeine and physical appearance has improved greatly, and she is now interactive and has plans for her future. Roxie Atwood M.Ed. [facility]
[2019-05-30] MEDS ORDERED: HYDHCL25 PO (13:19)
[2019-05-30] MEDS ORDERED: NICO2 PO (13:19)
[2019-05-30] MEDS ORDERED: NICO21TP TOP (13:20)
--- NOTE | 2019-05-30 18:01 | NUR ---
PT DISCHARGED AT 1745 WITH TO TRANSPORT. ALL PAPERWORK WAS REVEIWED AND MEDICATION DISCUSSED. PT HAS FOLLOW UP INSTRUCTIONS IN PACKET. PT DENIES ANY SUICIDAL THOUGHTS OR PLANS AT THIS TIME PER PT. PT HAS SAFETY PLAN TO FOLLOW AND HAS BEEN INSTRUCTED TO RETURN IMMEDIATELY IF ANY THOUGHTS OF SUICIDE BEGIN TO FORM. PT VERBALIZED UNDERSTANDING. PT ESCORTED TO [facility] WITH PERSONAL BELONGINGS VIA WHEEL CHAIR. NO DISTRESS NOTED AOX4.
== END 2019-05-30 17:55 | disposition home or self-care (01) | DRG 917 ==
LOC: ER 21:43 → ICUW 21:45 → ICUE 21:45 → ICUW 05-19 00:07 → ER 05-19 00:07 → ICUE 05-19 00:07 → ICUW 05-19 00:09 → ICUE 05-19 00:09 → MEDS 05-22 16:00
PROVIDERS: Emergency Medicine; Internal Medicine; ADMIT Internal Medicine
DX: T43.022A Poisoning by tetracyclic antidepressants, intentional self-harm, initial encounter (principal); J69.0 Pneumonitis due to inhalation of food and vomit; F33.9 Major depressive disorder, recurrent, unspecified; T42.6X2A Poisoning by other antiepileptic and sedative-hypnotic drugs, intentional self-harm, initial encounter; F41.9 Anxiety disorder, unspecified; F10.20 Alcohol dependence, uncomplicated; F17.210 Nicotine dependence, cigarettes, uncomplicated; E87.6 Hypokalemia; I10 Essential (primary) hypertension; B19.20 Unspecified viral hepatitis C without hepatic coma; M19.90 Unspecified osteoarthritis, unspecified site; F15.10 Other stimulant abuse, uncomplicated; Z88.5 Allergy status to narcotic agent; Z79.899 Other long term (current) drug therapy; Z90.49 Acquired absence of other specified parts of digestive tract
CPT/HCPCS: 36415; 51702; 71045; 71046; 80053; 80069; 81001; 81025; 82550; 85025; 85027; 87086; 93005; 93010; 96365-59; 96366-59; 96375-59; 96376; 99285-25; A9270; G0378; G0480; J1650; J2060; J2310; J2405; J2543; J3475; J3480; J7030; J7040; J7050

== ENCOUNTER 2023-06-16 13:51 | Inpatient (IN) | payer MEDICARE, OTHER ==
[~2023-06-16] VITALS: Ht 167.6 cm; Wt 63.5 kg
[~2023-06-16 13:51] MED LIST changes: +HYDHCL25 PO; +NICO2 PO; +NICO21TP TOP
[2023-06-16 16:11] LABS: BASOPHILS ABSOLUTE AUTO 0.04 K/mm3 (0.00-0.23); BASOPHILS PERCENT AUTO 0 % (0-2); EOSINOPHILS PERCENT AUTO 0 % (0-6); Hematocrit 39.8 % (33.0-51.0); Hemoglobin 14.3 g/dL (11.5-16.0); IMMATURE GRAN ABSOLUTE AUTO 0.04 K/mm3 (0.00-0.10); IMMATURE GRAN PERCENT AUTO 0 % (0-1); LYMPHOCYTES ABSOLUTE AUTO 0.64 K/mm3 (0.84-5.20); LYMPHOCYTES PERCENT AUTO 7 % (21-46); MONOCYTES ABSOLUTE AUTO 0.84 K/mm3 (0.16-1.47); MONOCYTES PERCENT AUTO 9 % (4-13); Mean Corpuscular HGB 34.1 pg (26.0-34.0); Mean Corpuscular HGB Conc 35.9 g/dL (31.5-36.5); Mean Corpuscular Volume 95 fL (80-100); Mean Platelet Volume 8.8 fL (9.1-12.4); NEUTROPHILS PERCENT AUTO 84 % (41-73); Platelet Count 263 K/mm3 (150-400); RDW Coefficient Variation 11.1 % (11.7-14.2); RDW Standard Deviation 38.8 fL (35.1-46.3); Red Blood Cell Count 4.19 M/mm3 (3.80-5.20); White Blood Cell Count 9.86 K/mm3 (4.00-11.30)
[2023-06-16 16:34] LABS: Source, Urine Foley catheter
[2023-06-16 16:39] LABS: Albumin, Blood 2.8 g/dL (3.4-5.0); Albumin/Globulin Ratio 0.7 (0.8-1.8); Bilirubin, Total 1.2 mg/dL (0.1-1.0); Bun/Creatinine Ratio 13.5 (12.0-20.0); Calcium, Blood 8.5 mg/dL (8.5-10.1); Creatinine, Blood 0.37 mg/dL (0.40-1.00); Globulin, Blood 3.9 g/dL (2.2-4.0); Potassium, Blood 4.1 mmol/L (3.5-5.5); Total Protein, Blood 6.7 g/dL (6.4-8.2)
[2023-06-16 16:43] LABS: Appearance, Urine Clear (Clear); Bilirubin, Urine Neg (Neg); Blood, Urine Neg (Neg); Color, Urine Yellow (P-Yellow); Glucose Qualitative, Urine Neg (Neg); Ketones, Urine Neg (Neg); Leukocyte Esterase, Urine Neg (Neg); Nitrite, Urine Neg (Neg); Protein, Urine 1+ (Neg); Urobilinogen, Urine NORM (Normal)
--- NOTE | 2023-06-16 18:40 | NUR ---
PATIENT ARRIVED FROM ER TODAY. LEFT HIP FX PATIENT IS A&OX4. HER LEFT AND RIGHT HIP HAVE SLIGHT BRUISING. ALSO HER LEFT AND RIGHT HAND KNUCKLES HAVE BRUISING WELL. PATIENTS BUTTOCKS HAVE A SMALL RED SPOT BUT IS BLANCHABLE. PATIENT DENIES NUMBNESS OR TINGLING IN ALL EXTREMITIES. SHE IS ABLE TO MOVE ALL FINGERS AND TOES WHEN ASKED. BUCKLEY IS IN PLACE AND DRAINING PER GRAVITY THAT WAS PLACED BY THE ER NURSE. PATIENT IS TOLERATING PO INTAKE. PATIENT REPORTS 8/10 PAIN AT THIS TIME BUT WAS JUST GIVEN IV TORADOL AT THIS TIME FOR MANAGEMENT. SHE IS LAYING IN BED WITH CALL LIGHT IN REACH. THE PLAN IS TO BE NPO AT MIDNIGHT TONIGHT FOR SURGERY WITH DR. RODRIGEZ TOMORROW.
[2023-06-16 18:44] VITALS: BP 143/91
[2023-06-16 19:42] VITALS: BP 130/91
[2023-06-17] VITALS (15 sets, daily range): BP systolic 104–170; BP diastolic 66–101
--- NOTE | 2023-06-17 04:26 | NUR ---
SHIFT SUMMARY PT ABLE TO REST DURING THE NIGHT. PAIN MANAGED PER EMAR. PT HAS BEEN NPO SINCE MIDNIGHT FOR POSSIBLE SURGERY TODAY. BUCKLEY PATENT AND DRAINING YELLOW URINE. IV FLUIDS RUNNING. NO OTHER CONCERNS AT THIS TIME. CALL LIGHT WITHIN REACH
[2023-06-17 04:51] LABS: Hematocrit 34.8 % (33.0-51.0); Hemoglobin 12.1 g/dL (11.5-16.0); Mean Corpuscular HGB 33.8 pg (26.0-34.0); Mean Corpuscular HGB Conc 34.8 g/dL (31.5-36.5); Mean Corpuscular Volume 97 fL (80-100); Platelet Count 212 K/mm3 (150-400); RDW Coefficient Variation 11.2 % (11.7-14.2); RDW Standard Deviation 40.4 fL (35.1-46.3); Red Blood Cell Count 3.58 M/mm3 (3.80-5.20); White Blood Cell Count 6.44 K/mm3 (4.00-11.30)
[2023-06-17 05:04] LABS: International Normalized Ratio 0.98; Prothrombin Time Results 10.3 Sec (9.7-11.5)
[2023-06-17 05:06] LABS: Bun/Creatinine Ratio 12.4 (12.0-20.0); Calcium, Blood 8.2 mg/dL (8.5-10.1); Creatinine, Blood 0.49 mg/dL (0.40-1.00); Potassium, Blood 3.5 mmol/L (3.5-5.5)
--- NOTE | 2023-06-17 13:55 | NUR ---
TO DAY SURGERY VIA HOSPITAL
--- NOTE | 2023-06-17 16:18 | NUR ---
STEPHANIE BLOCK COMPLETED IN SDS WITH DR. NEVES. PT SUPINE, VSS, ROOM AIR. 1517: TIME OUT PERFORMED 1518: 50MCG FENTANYL IVP ADMINISTERED BY ANESTHESIOLOGIST 1521: PROCEDURE START 1523: 50MCG FENTANYL IVP ADMINISTERED BY ANESTHESIOLOGIST 1528: PROCEDURE COMPLETE PT TOLERATED PROCEDURE WELL WITHOUT INCIDIENT. VITALS MONITORED THROUGHOUT PROCEDURE. PT TRANSFERRED BACK TO OR VIA BED, REPORT GIVEN TO ORD.KEREN.
--- NOTE | 2023-06-17 17:53 | NUR ---
POST OP RETURN TO ROOM PT RETURNS FROM HAVING A CEMENTED PARTHA HIP REPAIR. PLEASANT & ALERT, BUT REPORTS FEELING "OUT OF IT". L HIP w/ AQUACEL SMALL SPOT NOTED. BRUISING UNDER HIP. PPP. WIGGLES TOES EASILY. APPEARS COMFORTABLE. DENIES N/V. TAKING IN SIPS OF WATER.
--- NOTE | 2023-06-17 23:19 | NUR ---
PT DRESSING TO L HIP CHANGED. NEW AQUACELL TO L HIP C/D/I. WILL CONTINUE TO MONITOR FOR MORE DRAINAGE
[2023-06-18 04:51] VITALS: BP 156/93
--- NOTE | 2023-06-18 05:58 | NUR ---
SHIFT SUMMARY POD 1 L PARTHA HIP W/ CEMENTING PT ABLE TO REST T/O NIGHT. PAIN MANAGED PER EMAR. PT HAS SOME SCANT BLEEDING DURING THE NIGHT. DRESSING GOT CHANGED. PT HAS NOT GOTTEN UP YET. VSS. TOLERTAING PO INTAKE. DENIES N/T IS ALL EXT'S. NO OTHER CONCERNS AT THIS TIME. CALL LIGHT WITHIN REACH
[2023-06-18 07:25] VITALS: BP 145/81
--- NOTE | 2023-06-18 10:43 | NUR ---
THIS NURSE JUST HAD TO APPLY A NEW AQUACEL DRESSING TO THE PATIENTS LEFT HIP INCISION DUE TO THE MODERATE AMOUNT OF BLOOD OUTPUT COMING FROM IT AND OOZING OUT THE SIDE OF THE AQUACEL. AQUACEL ON THAT LEFT HIP IS NOW C/D/I AGAIN. DR. RODRIGEZ IS AWARE OF THIS ISSUE AND STATED "I WILL BE BY TO COME AND LOOK AT THE INCISION LATER TODAY". PATIENT IS IN HER RECLINER CHAIR AND CALL LIGHT IN REACH.
[2023-06-18 16:43] VITALS: BP 140/92
--- NOTE | 2023-06-18 18:36 | NUR ---
SHIFT SUMMARY: POD 1 LEFT PARTHA HIP PATIENT IS A&OX4. VS ARE WNL AND IS ON RA WITH >90% OXYGEN SATS. PAIN IS MANAGED WITH PO OXY, TYLENOL, IV TORADOL AND IV MORPHINE. DR. RODRIGEZ EARLIER TODAY CAME AND CHANGED THE PATIENTS LEFT HIP INCISION DRESSING WITH XEROFOAM, 4X4 GAUZE, ABD PAD, AND MEDIPORE TAPE THAT HAS BEEN C/D/I SINCE THAT WAS PLACED. PATIENT DENIES NUMBNESS OR TINGLING IN ALL EXTREMITIES. SHE IS ABLE TO MOVE ALL FINGERS AND TOES WHEN ASKED. SHE IS TOLERATING PO INTAKE AND IS VOIDING. PATIENT IS CURRENTLY IN HER RECLINER CHAIR WITH LEGS ELEVATED AND CALL LIGHT IN REACH. THE PLAN IF APPROPRIATE STILL SHE WILL DISCHARGE HOME WITH HOME HEALTH TOMORROW.
[2023-06-18 19:49] VITALS: BP 123/84
[2023-06-19 04:19] VITALS: BP 136/92
[2023-06-19 05:23] LABS: Hematocrit 29.1 % (33.0-51.0); Hemoglobin 10.2 g/dL (11.5-16.0); Mean Corpuscular HGB 34.7 pg (26.0-34.0); Mean Corpuscular HGB Conc 35.1 g/dL (31.5-36.5); Mean Corpuscular Volume 99 fL (80-100); Mean Platelet Volume 9.2 fL (9.1-12.4); Platelet Count 209 K/mm3 (150-400); RDW Coefficient Variation 10.9 % (11.7-14.2); RDW Standard Deviation 39.7 fL (35.1-46.3); Red Blood Cell Count 2.94 M/mm3 (3.80-5.20); White Blood Cell Count 6.12 K/mm3 (4.00-11.30)
--- NOTE | 2023-06-19 05:42 | NUR ---
SHIFT SUMMARY POD 2 L HEMIHIP PT ABLE TO REST DURING THE NIGHT. PAIN MANAGED PER EMAR. PT UP TO BATHROOM A COUPLE TIMES DURING THE NIGHT. PT TRANSFERING VERY WELL. VOIDING, PASSING GAS. TOLERTAING PO INTAKE. DRESSING NEEDED TO BE CHANGED ONE TIME DURING THE SHIFT. SINCE CHANGE AT 2230 NO DRAINAGE HAS BEEN NOTED ON THE DRESSING. PLAN FOR D/C TODAY HOME W/ HOME HEALTH. NO OTHER CONCERNS AT THIS TIME. CALL LIGHT WITHIN REACH
[2023-06-19 06:00] LABS: Bun/Creatinine Ratio 8.4 (12.0-20.0); Calcium, Blood 7.8 mg/dL (8.5-10.1); Creatinine, Blood 0.59 mg/dL (0.40-1.00); Potassium, Blood 3.4 mmol/L (3.5-5.5)
[2023-06-19 07:37] VITALS: BP 160/94; BP 161/102
[2023-06-19] MEDS ORDERED: OXAYDO5 M1 PO (10:17)
[2023-06-19] MEDS ORDERED: XARELTO20 MG PO (10:18)
[2023-06-19 14:57] VITALS: BP 144/93
--- NOTE | 2023-06-19 15:40 | NUR ---
SPOKE WITH DR. RODRIGEZ R/T DRAINAGE FROM L HIP SURGICAL SITE. DRESSING CHANGED ONCE THIS SHIFT SO FAR. WHEN PT STANDING THE WOUND WILL CONSISTENTLY OOZE SEROSANGUINOUS DRAINAGE. DR. RODRIGEZ WOULD LIKE PATIENT TO STAY UNTIL DRAINAGE STOPS AND TO START ON ANTIBIOTICS SHE IS HIGH RISK FOR INFECTION. WILL ALSO STOP BLOOD THINNERS AT THIS TIME.
--- NOTE | 2023-06-19 17:23 | NUR ---
SHIFT SUMMARY POD 2 PARTHA HIP PT AMBULATING WELL WITH WALKER TODAY. PAIN MANAGED PER EMAR. DRESSING CHANGED TWICE TODAY. CONTINUES TO HAVE SEROSANGUINOUS DRAINAGE. ABX STARTED PER EMAR. AMBULATING HALLS WELL, TOLERATING DIET WELL.
--- NOTE | 2023-06-19 18:27 | NUR ---
pain med prescription given to spouse this afternoon who took it and filled it.
[2023-06-19 19:10] VITALS: BP 109/70
[2023-06-20 02:51] VITALS: BP 151/89
[2023-06-20 04:58] LABS: Hematocrit 31.6 % (33.0-51.0); Hemoglobin 10.9 g/dL (11.5-16.0); Mean Corpuscular HGB 33.7 pg (26.0-34.0); Mean Corpuscular HGB Conc 34.5 g/dL (31.5-36.5); Mean Corpuscular Volume 98 fL (80-100); Mean Platelet Volume 9.1 fL (9.1-12.4); Platelet Count 222 K/mm3 (150-400); RDW Coefficient Variation 10.8 % (11.7-14.2); RDW Standard Deviation 38.9 fL (35.1-46.3); Red Blood Cell Count 3.23 M/mm3 (3.80-5.20); White Blood Cell Count 5.54 K/mm3 (4.00-11.30)
[2023-06-20 05:58] LABS: Bun/Creatinine Ratio 9.6 (12.0-20.0); Calcium, Blood 7.9 mg/dL (8.5-10.1); Creatinine, Blood 0.42 mg/dL (0.40-1.00); Potassium, Blood 3.6 mmol/L (3.5-5.5)
--- NOTE | 2023-06-20 07:33 | NUR ---
SUMMARY NO ACUTE CHANGES, A&O, VSS, ON RA, SBA TO BATHROOM, VOIDING WNL, TOLERATING PO INTAKE, PAIN MANAGED PER EMAR, DRSG TO RIGHT HIP CHANGED X1, PT RESTING QUIETLY AT THIS TIME, WCTM & REPORT TO DAY RN
[2023-06-20 07:44] VITALS: BP 131/78
[2023-06-20 14:35] VITALS: BP 138/84
--- NOTE | 2023-06-20 17:44 | NUR ---
SHIFT SUMMARY POD 3 L PARTHA HIP PT AMBULATING WELL DURING SHIFT. PAIN CONTROLLED PER EMAR. DRESSING CHANGED TODAY BY DR. RODRIGEZ. REMAINS CDI AT THIS TIME. IV ABX CONTINUING TO INFUSE PER EMAR. PT TOLERATING DIET WELL.
[2023-06-20 19:21] VITALS: BP 130/77
[2023-06-21 05:24] VITALS: BP 151/91
[2023-06-21 05:48] LABS: Hematocrit 31.6 % (33.0-51.0); Hemoglobin 10.8 g/dL (11.5-16.0); Mean Corpuscular HGB 33.5 pg (26.0-34.0); Mean Corpuscular HGB Conc 34.2 g/dL (31.5-36.5); Mean Corpuscular Volume 98 fL (80-100); Mean Platelet Volume 8.8 fL (9.1-12.4); Platelet Count 257 K/mm3 (150-400); RDW Coefficient Variation 10.9 % (11.7-14.2); RDW Standard Deviation 39.2 fL (35.1-46.3); Red Blood Cell Count 3.22 M/mm3 (3.80-5.20); White Blood Cell Count 5.26 K/mm3 (4.00-11.30)
[2023-06-21 06:27] LABS: Alanine Aminotransfer (ALT/SGP 33 U/L (12-78); Albumin/Globulin Ratio 0.6 (0.8-1.8); Alk Phos 85 U/L (50-136); Anion Gap 3 mmol/L (6-16); Aspartate Aminotrans (AST/SGOT 58 U/L (12-37); Bilirubin, Total 0.5 mg/dL (0.1-1.0); Blood Urea Nitrogen 4 mg/dL (8-24); Bun/Creatinine Ratio 8.1 (12.0-20.0); CO2, Blood 27 mmol/L (21-32); Calcium, Blood 8.2 mg/dL (8.5-10.1); Chloride, Blood 104 mmol/L (98-108); Creatinine, Blood 0.49 mg/dL (0.40-1.00); Globulin, Blood 3.2 g/dL (2.2-4.0); Glomerular Filtration Rate 109 (60-); Glucose, Blood 98 mg/dL (70-99); Potassium, Blood 3.8 mmol/L (3.5-5.5); Sodium, Blood 134 mmol/L (136-145); Total Protein, Blood 5.2 g/dL (6.4-8.2); Triglycerides 81 mg/dL (30-160)
[2023-06-21 07:39] VITALS: BP 136/88
--- NOTE | 2023-06-21 07:56 | NUR ---
SUMMARY NO ACUTE CHANGES NOTED, VSS, ON RA, SBA W/FWW, VOIDING WNL, PAIN MNGD W/PO MEDS, MELCHOR C/D/I, REPORT GIVEN TO EDITA BOYCE, CALL LIGHT IN REACH
[2023-06-21 15:40] VITALS: BP 125/96
--- NOTE | 2023-06-21 16:00 | NUR ---
TELEPHONE CALL TO DR RODRIGEZ R/T DRESSING CHANGE, AQUACEL APPLIED AND PRESSURE DRESSING HAD SCANT DRAINAGE, OK FOR PATIENT TO DC HOME? DC ON ANTICOAG? DR RODRIGEZ SAID PT MAY DC WITH BACTRIM DS BID X 1 WEEK FOR HIGH RISK INFECTION; AND NO ANTICOAG BASED ON BLEEDING RISK. TELEPHONE CALL TO HOSPITALIST DR GALLEGO TO RELAY ABOVE.
[2023-06-21] MEDS ORDERED: BACTRIM DS TAB1 EAC6 PO (16:27)
--- NOTE | 2023-06-21 16:45 | NUR ---
SHIFT SUMMARY PT A&OX4, VSS/RA, SAIRA PO, VOIDING, AMB FWW SBA, PAIN TREATED PER EMAR, IV DC'D. DC INS PROVIDED. PT REP UNDERSTANDING THOSE INSTRUCTIONS INCLUDING BACTRIM - SENT TO [facility], DRESSING CHANGES. LEFT FLOOR VIA WC WITH DRUGLESS DOCTOR TO GO HOME WITH WITH ALL PERSONAL POSSESSIONS INCLUDING DC PACKET; PT REP NARC SCRIPT FILLED AND AT HOME.
== END 2023-06-21 16:51 | disposition home or self-care (01) | DRG 522 ==
LOC: ER 13:51 → SURS 17:01
PROVIDERS: Emergency Medicine; Internal Medicine; Nurse Practitioner Acute Care; Orthopaedic Surgery; ADMIT Internal Medicine
PROC: 0SRS0J9 Replacement of Left Hip Joint, Femoral Surface with Synthetic Substitute, Cemented, Open Approach (ICD-10-PCS; principal; 2023-06-17 15:00)
DX: S72.032A Displaced midcervical fracture of left femur, initial encounter for closed fracture (principal); E46 Unspecified protein-calorie malnutrition; E87.1 Hypo-osmolality and hyponatremia; D62 Acute posthemorrhagic anemia; W01.0XXA Fall on same level from slipping, tripping and stumbling without subsequent striking against object, initial encounter; F32.A Depression, unspecified; F17.210 Nicotine dependence, cigarettes, uncomplicated; K21.9 Gastro-esophageal reflux disease without esophagitis; F15.11 Other stimulant abuse, in remission; M19.90 Unspecified osteoarthritis, unspecified site; F41.9 Anxiety disorder, unspecified; F10.90 Alcohol use, unspecified, uncomplicated; I10 Essential (primary) hypertension; Z79.891 Long term (current) use of opiate analgesic; Z79.899 Other long term (current) drug therapy; Z86.79 Personal history of other diseases of the circulatory system; Z86.19 Personal history of other infectious and parasitic diseases; Z98.890 Other specified postprocedural states; Z90.49 Acquired absence of other specified parts of digestive tract; Z90.89 Acquired absence of other organs; Z68.22 Body mass index [BMI] 22.0-22.9, adult
CPT/HCPCS: 36415; 51702; 72170; 73502; 80048; 80053; 84134; 84478; 85025; 85027; 85610; 94762; 96361-59; 96374-59; 96375-59; 97110; 97116; 97162; 97530; 99284-25; A9270; C1713; C1776; J0171; J0690; J0735; J1100; J1170; J1885; J2270; J2405; J2704; J2795; J3010; J7030; J7050; J7120